=== PATIENT | male | born 1950 | race Caucasian/White ===

== ENCOUNTER 2024-06-09 15:09 | Inpatient (IN) | payer OTHER, SELFPAY ==
--- NOTE | ~2024-06-09 | CT_ITS ---
EXAMINATION: CT ABDOMEN AND PELVIS WITHOUT CONTRAST CLINICAL INFORMATION: Vomiting, weight loss, acute kidney injury COMPARISON: CT from 07/24/2015 TECHNIQUE: Multidetector volumetric imaging was performed from the superior aspect of the liver through the pubic symphysis. Sagittal and coronal reformatted images were obtained on the technologist's workstation. This CT examination was performed using dose optimization techniques as appropriate, variously including the following: *Automated exposure control *Adjustment of mA and/or kV according to patient size (this includes techniques or standardized protocols for targeted exams where dose is matched to indication/reason for exam; i.e. extremities or head) *Use of iterative reconstruction technique DLP: 291 mGy-cm FINDINGS: LUNG BASES: Subsegmental atelectasis in the right lower lobe. Centrilobular emphysema seen LIVER, GALLBLADDER, AND BILIARY TREE: The liver is normal in size, shape, and attenuation. No focal hepatic lesion or biliary ductal dilatation is present. The gallbladder is decompressed. PANCREAS: Unremarkable. SPLEEN: Unremarkable. ADRENAL GLANDS: Unremarkable. KIDNEYS AND URETERS: The kidneys are normal in size, shape, and attenuation. No hydronephrosis, hydroureter, or calculi seen. No perinephric stranding. 1.5 cm simple fluid density cyst in the left kidney. No follow-up indicated. BLADDER: Decompressed GASTROINTESTINAL TRACT: Markedly dilated stomach and small bowel throughout the abdomen with a decompressed colon. There is a loop of bowel extending into the right hernia which is the site of obstruction. No significant bowel wall thickening or free air seen. ABDOMINAL WALL: Right inguinal hernia containing loop of bowel LYMPH NODES: Normal. VASCULAR: Diffuse atherosclerotic wall calcifications throughout the abdominal aorta and iliac arteries. PELVIC VISCERA: Unremarkable. OSSEOUS STRUCTURES: Degenerative disc disease at L5/S1 CT/CT abdomen pelvis wo IV con IMPRESSION: High-grade small bowel obstruction secondary to a right inguinal hernia containing a loop of small bowel. No evidence of bowel ischemia or perforation. This critical result was discussed with Phoebe Mason MD at 1806 on 06/09/2024 and it was ascertained that the content and urgency of the report was understood at the time of direct communication.
--- NOTE | ~2024-06-09 | XR_ITS ---
EXAMINATION: XR CHEST CLINICAL INFORMATION: Weakness, cough COMPARISON: None available. TECHNIQUE: Frontal view of the chest was obtained. FINDINGS: No significant abnormality is noted involving the heart, lungs, mediastinum, bony thorax or soft tissues. XR/XR chest 1V IMPRESSION: Unremarkable examination.
--- NOTE | ~2024-06-09 | XR_ITS ---
EXAMINATION: XR CHEST CLINICAL INFORMATION: Check NG tube placement. COMPARISON: Chest radiograph dated 06/09/2024 at 5:10 PM. TECHNIQUE: Frontal view of the chest was obtained. FINDINGS: There is a catheter overlying the lateral right chest. The proximal and distal portions of this catheter are collimated from the [id number]. There is no evidence of a catheter traversing the esophagus. The heart and lungs are unchanged in appearance compared with examination performed at 5:10 PM on same day. There is no consolidation. The lungs are clear. No pleural effusion or pneumothorax. XR/XR chest 1V IMPRESSION: There is a catheter overlying the lateral right chest. The proximal and distal portions of this catheter are collimated from the [id number]. There is no evidence of a catheter traversing the esophagus. The heart and lungs are unchanged in appearance compared with examination performed at 5:10 PM on same day.
--- NOTE | ~2024-06-09 | XR_ITS ---
EXAMINATION: XR CHEST CLINICAL INFORMATION: Hypoxia. Question aspiration. COMPARISON: Chest radiograph dated 06/09/2024. TECHNIQUE: Frontal view of the chest was obtained. FINDINGS: Enterogastric tube with the tip in the region of the gastric fundus and the side port at the level of the left hemidiaphragm. Right basilar airspace opacities, new when compared to the prior examination and concerning for pneumonia. No left-sided airspace consolidation. No pleural effusion or pneumothorax. Stable cardiomediastinal silhouette. XR/XR chest 1V IMPRESSION: 1. Right basilar airspace opacities, new when compared to the prior examination and concerning for pneumonia. 2. Enterogastric tube with the tip in the region of the gastric fundus and the side port at the level of the left hemidiaphragm.
[2024-06-09 15:15] VITALS: BP 90/60; PULSE 102; O2SAT 97; BMI 17.3
[2024-06-09 15:22] VITALS: BP 101/66; PULSE 91; RESP 18; TEMP 37.1; O2SAT 97
[2024-06-09 16:10] LABS: MANUAL DIFF FLAG NO
[2024-06-09 16:16] LABS: Basophils Percent Auto 0.3 % (0-2); Hemoglobin 15.8 g/dl (14.0-18.0); Imm Gran Abs Auto 0.01 X10*3/uL (0.00-0.03); Imm Gran Pct Auto 0.2 % (0.0-0.4); Lymphocytes Absolute Auto 0.8 X10*3/uL (1.2-4.9); Lymphocytes Percent Auto 12.8 % (20-40); Mean Corpuscular HGB Conc 35.1 g/dl (31.0-36.0); Mean Corpuscular Hemoglobin 31.6 pg (27.0-33.0); Mean Platelet Volume 9.8 fL (9.4-12.4); Monocytes Absolute Auto 0.9 X10*3/uL (0.1-1.2); Monocytes Percent Auto 15.2 % (2-11); Neutrophils Absolute Auto 4.2 x10*3/uL (2.0-8.3); Neutrophils Percent Auto 71.5 % (45-73); Platelet Count 191 X10*3/uL (160-400); Red Cell Distribution Width 13.2 % (11.0-16.0); White Blood Count 5.9 X10*3/uL (4.8-10.8)
[2024-06-09 16:35] LABS: Anion Gap 21 (12-20); Blood Urea Nitrogen 69 mg/dL (9-16); Carbon Dioxide 27 mmol/L (22-29); Chloride 93 mmol/L (96-108); Creatinine Clr Calc Pharmacy 23.9; Estimated Glomerular Filt Rate 33; Sodium 137 mmol/L (135-145)
[2024-06-09 16:36] LABS: Alanine Aminotransferase 20 U/L (0-40); Aspartate Amino Transferase 15 U/L (5-37); Bilirubin Total 0.7 mg/dL (0.0-1.0); Calcium 10.2 mg/dL (8.4-10.2); Glucose Random 162 mg/dL (60-115); Total Protein 7.2 g/dL (6.5-8.0)
[2024-06-09 16:37] LABS: Albumin Level 4.5 g/dL (3.5-5.0); Alkaline Phosphatase 35 U/L (39-117); Lipase 44 U/L (8-78)
--- OUTSIDE RECORDS SUMMARY | 2024-06-09 16:40 | XMS_ITS | Continuity of Care Document ---
Author Organization [facility] Hernesto maxine Address [address] [place] [address] [address] [place] [address]- Care Team Providers Care Barrel Rifler Operator Name Role Phone Casa JORDAN, Melvin Pappas Primary Care Physici an Encounter [facility] Date(s): 03/19/22 - 04/18/22 [facility] [address] [place], [place] [address] Attending Physician: Rick Garner Admitting Physician: Rick Garner Referring Physician: Rick Garner
--- OUTSIDE RECORDS SUMMARY | 2024-06-09 16:40 | XMS_ITS | Continuity of Care Document ---
Author Organization [facility] Hernesto maxine Address [address] [place] [address] [address] [place] [address]- Care Team Providers Care Trade Union Official Name Role Phone Casa JORDAN, Melvin Pappas Primary Care Physici an Encounter [facility] [place] Date(s): 01/19/22 - 04/18/22 [facility] [address] [place], [place] [address] Attending Physician: Olena Sanders MD Referring Physician: Melvin Cormier NP
--- OUTSIDE RECORDS SUMMARY | 2024-06-09 16:41 | XMS_ITS | Continuity of Care Document ---
Author Organization [facility] Hernesto maxine Address [address] [place] [address] [address] [place] [address]- Care Team Providers Care Church Business Administrator Name Role Phone Casa JORDAN, Melvin Pappas Primary Care Physici an Encounter [facility] [place] Date(s): 04/15/23 - 05/15/23 [facility] [address] [place] [address]- Allergies, Adverse Reactions, Alerts No Known Allergies Medications atorvastatin 10 mg oral tablet 1 tablet = 10 mg, By Mouth, Daily, 0 Refills, Maintenance, 02/08/23 9:31:00 EDT, Partial fill upon patient request if the prescription is for a schedule II opioid drug. Start Date: 02/08/23 Status: Ordered Lisinopril By Mouth, Daily, 0 Refills, Maintenance, 02/08/23 9:29:00 EDT, Partial fill upon patient request ifthe prescription is for a schedule II opioid drug. Start Date: 02/08/23 Status: Ordered Social History Social History Type Response Smoking Status 5-9 cigarettes (betw een 1/4 to 1/2 pack)/day in last 30 days entered on: 02/08/23 Sex Patient Care team information Care Team Personnel Name: Melvin Cormier NP Position: Reference Physician Member Role: PCP Address: Address: [address] [place] [address]- [place] Care Team Related Persons Name: DIPAK SANDHU Address: home [address] [place] [address]
--- OUTSIDE RECORDS SUMMARY | 2024-06-09 16:41 | XMS_ITS | Continuity of Care Document ---
Author Organization [facility] Address [address] [place] [address] [address] [place] [address]- Care Team Providers Care Factory Clerk Name Role Phone Joey Cormier NP Primary Care Physici an Encounter [facility] [place] Date(s): 09/17/22 - 09/24/22 [facility] [address] [place] [address]- Attending Physician: Olena Sanders MD Allergies, Adverse Reactions, Alerts No Known Allergies Vital Signs Most recent to oldest [Reference Range]: 1 Height 165 cm (09/17/22 10:33 AM) Weight 59 kg (09/17/22 10:33 AM) Body Mass Index [18.5-24.99 kg/m2] 21.67 kg/m2 (09/17/22 10:33 AM) Dry Weight 59 kg (09/17/22 10:33 AM) Dry Weight Obtained Via Standing scale (09/17/22 10:33 AM) Patient Care team information Personnel Name: Joey Cormier NP Address: Address: [address] [place] [address]
--- OUTSIDE RECORDS SUMMARY | 2024-06-09 16:41 | XMS_ITS | Continuity of Care Document ---
Author Organization [facility] Hernesto maxine Address [address] [place] [address] [address] [place] [address]- Care Team Providers Care Lab Technologist Name Role Phone Melvin Cormier NP Primary Care Physici an Encounter [facility] Date(s): 09/17/22 - 10/17/22 [facility] [address] [place] [address]- Attending Physician: Admtr, Ar8 Admitting Physician: Admtr, Ar8 Referring Physician: Admtr, Ar8 Allergies, Adverse Reactions, Alerts No Known Allergies Patient Care team information Care Team Personnel Name: Melvin Cormier NP Position: Reference Physician Member Role: PCP Address: Address: [address] [place] [address]- Care Team Related Persons Name: DIPAK SANDHU Address: home [address] [place] [address]
--- OUTSIDE RECORDS SUMMARY | 2024-06-09 16:41 | XMS_ITS | Continuity of Care Document ---
Author Organization [facility] Hernesto maxine Address [address] [place] [address] [address] [place] [address]- Care Team Providers Care Geriatric Nurse Practitioner Name Role Phone Melvin Cormier NP Primary Care Physici an [place] [facility] [id number] Date(s): 02/08/23 - 02/15/23 [facility] [address] [place] [address]- Attending Physician: Rc Bolton MD Allergies, Adverse Reactions, Alerts No Known [...] opioid drug. Start Date: 02/08/23 Status: Ordered Vital Signs Most recent to oldest [Reference Range]: 1 Height 165 cm (02/08/23 9:26 AM) Weight 59 kg (02/08/23 9:26 AM) Body Mass Index [18.5-24.99 kg/m2] 21.67 kg/m2 (02/08/23 9:26 AM) Social History Social History Type Response Smoking Status 5-9 cigarettes (betw een 1/4 to 1/2 pack)/day in last 30 days entered on: 02/08/23 Sex Patient Care team information Care Team Personnel Name: Melvin Cormier NP Position: Reference Physician Member Role: PCP Address: Address: [address] [place] [address]- Care Team Related Persons Name: DIPAK SANDHU Address: home [address] [place] [address]
--- OUTSIDE RECORDS SUMMARY | 2024-06-09 16:41 | XMS_ITS | Continuity of Care Document ---
Author Organization [facility] Hernesto maxine Address [address] [place] [address] [address] [place] [address]- Care Team Providers Care Blog Writer Name Role Phone Casa JORDAN, Melvin Pappas Primary Care Physici an Encounter [facility] [place] Date(s): 03/25/23 - 04/01/23 [facility] [address] [place], [place] [address] Attending Physician: Olena Sanders MD Allergies, Adverse [...] oldest [Reference Range]: 1 Height 165 cm (03/25/23 11:16 AM) Weight 59 kg (03/25/23 11:16 AM) Body Mass Index [18.5-24.99 kg/m2] 21.67 kg/m2 (03/25/23 11:16 AM) Dry Weight 59 kg (03/25/23 11:16 AM) Dry Weight Obtained Via Standing scale (03/25/23 11:16 AM) Social History Social History Type Response Smoking Status 5-9 cigarettes (betw een 1/4 to 1/2 pack)/day in last 30 days entered on: 02/08/23 Sex Patient Care team information Care Team Personnel Name: Melvin Cormier NP Position: Reference Physician Member Role: PCP Address: Address: [address] [place] [address]- Care Team Related Persons Name: DIPAK SANDHU Address: home [address] [place] [address]
--- OUTSIDE RECORDS SUMMARY | 2024-06-09 16:41 | XMS_ITS | Continuity of Care Document ---
Author Organization [facility] Hernesto maxine Address [address] [place] [address] [address] [place] [address]- Care Team Providers Care Inventory Control/Shipping Receiving Name Role Phone Casa JORDAN, Melvin Pappas Primary Care Physici an [place] [facility] [place] 12/11/22 - 01/10/23 [facility] [address] [place] [address]- Allergies, Adverse Reactions, Alerts No Known Allergies Patient Care team information Care Team Personnel Name: Melvin Cormier NP Position: Reference Physician Member Role: PCP Address: Address: [address] [place] [address]- Care Team Related Persons Name: DIPAK SANDHU Address: home [address] [place] [address]
--- OUTSIDE RECORDS SUMMARY | 2024-06-09 16:41 | XMS_ITS | Continuity of Care Document ---
Author Organization [facility] Hernesto maxine Address [address] [place] [address] [address] [place] [address]- Care Team Providers Care Park Maintainer Name Role Phone Casa JORDAN, Melvin Pappas Primary Care Physici an Encounter [facility] [place] Date(s): 11/25/21 - 02/21/22 [facility] [address] [place], [place] [address] Attending Physician: Tommy ANDREA, Olena Owens Referring Physician: Melvin Cormier NP
--- OUTSIDE RECORDS SUMMARY | 2024-06-09 16:41 | XMS_ITS | Continuity of Care Document ---
Author Organization [facility] Hernesto maxine Address [address] [place] [address] [address] [place] [address]- Care Team Providers Care Rack Washer Name Role Phone Melvin Cormier NP Primary Care Physici an Encounter [facility] [place] Date(s): 08/12/23 - 08/19/23 [facility] [address] [place] [address]- Attending Physician: Olena Sanders MD Allergies, Adverse [...] oldest [Reference Range]: 1 Height 165 cm (08/12/23 9:59 AM) Weight 59 kg (08/12/23 9:59 AM) Body Mass Index [18.5-24.99 kg/m2] 21.67 kg/m2 (08/12/23 9:59 AM) Social History Social History Type Response Smoking Status 5-9 cigarettes (betw een 1/4 to 1/2 pack)/day in last 30 days entered on: 02/08/23 Sex Patient Care team information Care Team Personnel Name: Melvin Cormier NP Position: Reference Physician Member Role: PCP Address: Address: [address] [place] [address]- [place] Care Team Related Persons Name: DIPAK SANDHU Address: home [address] [place] [address]
--- OUTSIDE RECORDS SUMMARY | 2024-06-09 16:41 | XMS_ITS | Continuity of Care Document ---
Author Organization [facility] Hernesto maxine Address [address] [place] [address] [address] [place] [address]- Care Team Providers Care Liquor Stores And Agencies Supervisor Name Role Phone Melvin Cormier NP Primary Care Physici an Encounter [facility] [place] Date(s): 05/19/23 - 06/18/23 [facility] [address] [place] [address]- Allergies, Adverse Reactions, Alerts No Known Allergies [...] Reference Physician Member Role: PCP Address: Address: [address] [place] [address]- [place] Care Team Related Persons Name: DIPAK SANDHU Address: home [address] [place] [address]
--- OUTSIDE RECORDS SUMMARY | 2024-06-09 16:41 | XMS_ITS | Continuity of Care Document ---
Author Organization [facility] Hernesto maixne Address [address] [place] [address] Dr [address] [place] [address]- Care Team Providers Care Gravity Prospector Name Role Phone Casa JORDAN, Melvin Pappas Primary Care Physici an [place] [facility] [place] 08/13/22 - 08/20/22 [facility] [address] [place], [place] [address] Attending Physician: Olena Sanders MD Referring Physician: Melvin Cormier NP Allergies, Adverse Reactions, Alerts No Known Allergies Vital Signs Most recent to oldest [Reference Range]: 1 Height 165 cm (08/13/22 9:43 AM) Weight 59.5 kg (08/13/22 9:43 AM) Body Mass Index [18.5-24.99 kg/m2] 21.85 kg/m2 (08/13/22 9:43 AM) Dry Weight 59.5 kg (08/13/22 9:43 AM) Dry Weight Obtained Via Standing scale (08/13/22 9:43 AM) Patient Care team information Personnel Name: Melvin Cormier NP Address: Address: [address] [place] [address] [place] [address]
--- OUTSIDE RECORDS SUMMARY | 2024-06-09 16:41 | XMS_ITS | Continuity of Care Document ---
Author Organization [facility] Hernesto maxine Address [address] [place] [address] [address] [place] [address]- Care Team Providers Care Production Utility Worker Name Role Phone Casa JORDAN, Melvin Pappas Primary Care Physici an En[place] [facility] [place] Date(s): 12/11/22 - 02/19/23 [facility] [address] [place] [address]- Attending Physician: Rc Bolton MD Allergies, Adverse [...] Reference Physician Member Role: PCP Address: Address: [address] [place] [address] [place] Care Team Related Persons Name: DIPAK SANDHU Address: home [address] [place] [address]
--- OUTSIDE RECORDS SUMMARY | 2024-06-09 16:41 | XMS_ITS | Continuity of Care Document ---
Author Organization [facility] Hernesto maxine Address [address] [place] [address] [address] [place] [address]- Care Team Providers Care Legal Entity Controller Name Role Phone Casa JORDAN, Melvin Pappas Primary Care Physici an [place] [facility] [place] 03/25/23 - 05/15/23 [facility] [address] [place] [address]- Attending Physician: Tommy ANDREA, Olena Owens Allergies, Adverse Reactions, Alerts No Known Allergies [...] Reference Physician Member Role: PCP Address: Address: [address] [place] [address]- Care Team Related Persons Name: DIPAK SANDHU Address: home [address] [place] [address]
--- OUTSIDE RECORDS SUMMARY | 2024-06-09 16:41 | XMS_ITS | Continuity of Care Document ---
Author Organization [facility] Hernesto maxine Address [address] [place] [address] [address] [place] [address]- Care Team Providers Care Plumbers And Top Helpers Name Role Phone Casa JORDAN, Melvin Pappas Primary Care Physici an En[place] [facility] [place] Date(s): 08/12/23 - 09/11/23 [facility] [address] [place] [address]- Attending Physician: Rick Garner Admitting Physician: AdmtrRick Referring Physician: Admtr, Ar8 Allergies, Adverse Reactions, [...] Reference Physician Member Role: PCP Address: Address: [address] [place] [address]- Care Team Related Persons Name: DIPAK SANDHU Address: home [address] [place] [address]
--- OUTSIDE RECORDS SUMMARY | 2024-06-09 16:41 | XMS_ITS | Continuity of Care Document ---
Author Organization [facility] Hernesto maxine Address [address] [place] [address] [address] [place] [address]- Care Team Providers Care Electric Golf Cart Repairer Name Role Phone Casa JORDAN, Melvin Pappas Primary Care Physici an Encounter [facility] Date(s): 06/02/22 - 07/02/22 [facility] [address] [place], [place] [address]
--- OUTSIDE RECORDS SUMMARY | 2024-06-09 16:41 | XMS_ITS | Continuity of Care Document ---
Author Organization [facility] Hernesto maxine Address [address] [place] [address] [address] [place] [address]- Care Team Providers Care Operating Room Aide Name Role Phone Melvin Cormier NP Primary Care Physici an [place] [facility] 09/03/22 - 09/10/22 [facility] [address] [place] [address]- Attending Physician: Olena Sanders MD Allergies, Adverse Reactions, Alerts No Known Allergies Vital Signs Most recent to oldest [Reference Range]: 1 Height 165 cm (09/03/22 8:50 AM) Weight 59 kg (09/03/22 8:50 AM) Body Mass Index [18.5-24.99 kg/m2] 21.67 kg/m2 (09/03/22 8:50 AM) Dry Weight 59 kg (09/03/22 8:50 AM) Dry Weight Obtained Via Standing scale (09/03/22 8:50 AM) Patient Care team information Personnel Name: Melvin Cormier NP Address: Address: [address] [place] [address]
--- NOTE | 2024-06-09 16:55 | ED.WEAKNESS ---
HPI - Weakness General Chief complaint: Weakness Stated complaint: weakness, nausea, vomiting, poss dehydration Time Seen by Provider: 06/09/24 15:55 Source: patient Mode of arrival: EMS Limitations: no limitations History of Present Illness ED Provider: DANIEL HPI Narrative: 74 yo male with PMH of high cholesterol and HTN who cannot tell me what meds he takes but he takes them every day lives alone with his cat was brought to us for n/v weakness and poor PO intake dehydrated for 1 week. He denies weight loss that he knows about but his belt is past loops and he notes he doesn't feel great. He has never had a colonoscopy. He states he peed before he came. He cannot give urine sample here. He has never had anything like this before. He isn't very forthcoming with information. States he passed gas and small BM today. Complaint: generalized weakness Onset (ago): week(s) (1) Duration: constant Location: generalized Migration: none Severity: moderate Exacerbating factors: movement, exertion and other (eating) Associated symptoms: loss of appetite, nausea/vomiting and myalgias Related Data Allergies Allergy/AdvReac Type Severity Reaction Status Date / Time aspirin [ASPIRIN] AdvReac Intermediate UPSET Verified 06/09/24 15:17 STOMACH Review of Systems Review of Systems: Constitutional : No Fever, No Chills, pos Fatigue ENT/Mouth : No sore throat, No Rhinorrhea Eyes: No Eye Pain, No Swelling, No Redness Cardiovascular : No Chest Pain, No SOB, No Dyspnea on Exertion Respiratory : No Cough, No Sputum Gastrointestinal : pos Nausea, pos Vomiting, No Diarrhea, No abdominal Pain Genitourinary : No Dysuria, No Urinary Frequency, No Hematuria, Musculoskeletal : No joint pain, No Myalgias, No Joint Swelling Skin : No Skin Lesions, No rash Neuro : pos Weakness, No Numbness, No Dizziness, positive Headache Psych : No Anxiety/Panic, No Depression All other systems reviewed and are negative [facility] Past Medical History Attestation statement: The following information was validated with the patient. Source: old records reviewed Medical History High cholesterol HTN (hypertension) Social History Social History (Updated 06/09/24 @ 17:05 by Phoebe Mason DO) Alcohol intake: current Alcohol intake frequency: holidays/special occasions only Patient Tobacco Use Status: Current everyday Tobacco user Smoked in Last 30 Days: Yes Use of substances other than those prescribed or required for medical reasons: No Advance Directives: No Advance Directives Information Provided: Yes Do you have a plan to hurt others: No Plan Physical Exam Vital Signs: Vital Signs: Last Vital Signs Temp 98.7 F 06/09/24 15:22 Pulse 91 06/09/24 15:22 Resp 18 06/09/24 15:22 BP 101/66 06/09/24 15:22 Pulse Ox 97 06/09/24 15:22 O2 Del Method Room Air 06/09/24 15:22 BMI result Body Mass Index 17.3 Appearance: Alert. Oriented X3. No acute distress. Frail temporal wasting Eyes: Pupils equal, round and reactive to light. ENT: Pharynx very dry MM Neck: Normal inspection. Neck supple. CVS: Normal heart rate and rhythm. Pulses normal. Respiratory: No respiratory distress. Breath sounds normal. Abdomen: Soft but appears slightly distended lower abdomen. He denies ttp but he is very stoic belt is on extra loops pants hanging off : bladder scan 33mL R inguinal hernia cannot reduce states he has no pain and there's no discoloration noted. Skin: Skin warm and dry. Normal skin color. Normal skin turgor. Extremities: No lower extremity edema. Neuro: Oriented X 3. No motor deficit. No sensory deficit. Medications Administered Discontinued Medications Generic Name Dose Route Start Last Admin Trade Name Freq PRN Reason Stop Dose Admin Sodium Chloride 1,000 mls @ 999 mls/hr 06/09/24 16:50 06/09/24 17:11 Ns IV 06/09/24 17:50 999 mls/hr .Q1H1M ONE Administration Sodium Chloride 1,000 mls @ 999 mls/hr 06/09/24 16:59 06/09/24 17:11 Ns IV 06/09/24 17:59 999 mls/hr .Q1H1M ONE Administration Medical Decision Making Medical Decision Making [facility] Narrative: 74 yo male with PMH of high cholesterol and HTN here with c/o FTT n/v x 1 week and not feeling well he is not giving me any localizing areas of pain and no diarrhea. He is very flat in his affect. He denies abdominal pain and he appears very frail and thin. At this time labs, UA, CT scan of abdomen/pelvis of mass, obstrucion given hernia, CXR for mass, IVF x 2L given LALO. Likely admit pending workup Differential Diagnosis Differential Diagnoses: The differential diagnosis associated with the presentation includes LALO, mass, dehydration, obstruction, hernia Admission/Observation Consideration of admission/observation: Escalation of care including admission/observation considered admit for LALO Consult Healthcare Provider Management of the patient was discussed with: Power Generation Engineer (Dr. Dickson will review CT scans 620pm) surgery to admit Lab Data MDM Lab Attestation statement: I reviewed the patient's lab results. 06/09/24 16:03 06/09/24 16:03 Labs: Lab Results 06/09/24 06/09/24 Range/Units 16:03 17:07 WBC 5.9 (4.8-10.8) X10*3/uL RBC 5.00 (4.60-5.80) X10*6/uL Hgb 15.8 (14.0-18.0) g/dl Hct 45.0 (42.0-52.0) % MCV 90.0 (80.0-98.0) fL MCH 31.6 (27.0-33.0) pg MCHC 35.1 (31.0-36.0) g/dl RDW 13.2 (11.0-16.0) % Plt Count 191 (160-400) X10*3/uL MPV 9.8 (9.4-12.4) fL Immature Gran % (Auto) 0.2 (0.0-0.4) % Neut % (Auto) 71.5 (45-73) % Lymph % (Auto) 12.8 L (20-40) % Luce % (Auto) 15.2 H (2-11) % Eos % (Auto) 0.0 (0-4) % Baso % (Auto) 0.3 (0-2) % Lymph # (Auto) 0.8 L (1.2-4.9) X10*3/uL Luce # (Auto) 0.9 (0.1-1.2) X10*3/uL Eos # (Auto) 0.0 (0.0-0.4) X10*3/uL Baso # (Auto) 0.0 (0.0-0.2) X10*3/uL Abs Immat Gran (auto) 0.01 (0.00-0.03) X10*3/uL Absolute Neuts (auto) 4.2 (2.0-8.3) x10*3/uL Absolute Nucleated RBC 0.000 (0.0-0.012) X10*3/uL Nucleated RBC % (auto) 0.0 (0.0-0.2) /100WBC Sodium 137 (135-145) mmol/L Potassium 4.0 (3.3-5.1) mmol/L Chloride 93 L (96-108) mmol/L Carbon Dioxide 27 (22-29) mmol/L Anion Gap 21 H (12-20) BUN 69 H (9-16) mg/dL Creatinine 1.97 H (0.5-1.4) mg/dL Estim Creat Clear Calc 23.9 Estimated GFR 33 Random Glucose 162 H (60-115) mg/dL Calcium 10.2 (8.4-10.2) mg/dL Magnesium 2.2 (1.6-2.6) mg/dL Total Bilirubin 0.7 (0.0-1.0) mg/dL AST 15 (5-37) U/L ALT 20 (0-40) U/L Alkaline Phosphatase 35 L (39-117) U/L Total Creatine Kinase 98 (38-174) U/L Troponin I High Sens 13.0 (<3.5-35.0) ng/L Total Protein 7.2 (6.5-8.0) g/dL Albumin 4.5 (3.5-5.0) g/dL Lipase 44 (8-78) U/L Ethyl Alcohol < 10 mg/dL Independent Interpretation I performed an independent interpretation of an: EKG, Plain X-Ray (no mass) and CT Scan Interpretation: Rate: 76 Rhythm: NSR [place]: normal Normal P waves. Normal ARELY. Normal QRS complex. ST T wave : normal no POP qTC: 420 prior studies: no acute ischemia The study has been interpreted contemporaneously by me. . Radiology Impression Discussion of test interpretation with radiology: I discussed test interpretation with the radiologist and I have reviewed the radiologist's reading. Radiologist Impression: 606pm CT scan high grade SBO R inguinal hernia loop of bowel Critical Care Time Critical Care Time Critical Care Time: Yes Total Critical Care Time: 45 Attestation: consult, admit, 2L of IVF, review of records I attest to this time spent taking care of the patient Discharge Plan Discharge Clinical Impression: LALO (acute kidney injury), SBO (small bowel obstruction), Incarcerated inguinal hernia Patient Disposition: Admitted As Inpatient Print Language: [place]an
--- NOTE | 2024-06-09 16:59 | ECG_ITS ---
Test Reason : WEAKNESS Blood Pressure : / mmHG Vent. Rate : 076 BPM Atrial Rate : 076 BPM P-R Int : 122 ms QRS Dur : 072 ms QT Int : 374 ms P-R-T Axes : 006 022 064 degrees QTc Int : 420 ms Normal sinus rhythm Normal ECG No previous ECGs available Referred By: Phoebe Mason Electronically Signed By:EMILY WARREN MD
[2024-06-09 17:05] LABS: Magnesium 2.2 mg/dL (1.6-2.6)
[2024-06-09] MEDS: 0.9 % Sodium Chloride 1,000 ML 999 ML IV ×2 (17:11)
--- NOTE | 2024-06-09 17:11 | PC.NURSE ---
pt verbalizes being unable to urinate at this time. bladder scan performed displaying 33ml. 20gIV placed in the right AC - labs obtained/sent to lab. IVF infusing/per provider order at this time. pt waiting for CT to be completed at this time. resting in no apparent distress. no sob/wob noted. respirations even/unlabored. plan of care ongoing. call franklin placed within reach.
[2024-06-09 17:42] LABS: Ethanol < 10 mg/dL
[2024-06-09 19:04] LABS: Influenza A PCR NEGATIVE (Negative); Influenza B PCR NEGATIVE (Negative); Resp Syncy Virus RNA Qual PCR NEGATIVE (Negative); SARS COV2 PCR INHOUSE NEGATIVE (Negative)
[2024-06-09 19:22] LABS: Appearance Urine Clear; Color Urine Dark Yellow; Glucose Urine UA Negative (Negative); Leukocyte Esterase Urine Negative (Negative); Nitrite Urine Negative (Negative); UMIC TRIGGER UACC YES; Urine Blood Negative (Negative); Urine Ketones Negative (Negative); Urine Protein 100 (2+) mg/dL (Neg-Trace)
[2024-06-09 19:54] LABS: Bacteria Urine None Seen (None Seen); Hyaline Casts Urine >20 /LPF (0-2); RBC Urine 0-2 /HPF (0-2); Squamous Epithelial Cell Urine 0-2 /HPF (0-2); WBC Urine 0-5 /HPF (0-5)
--- NOTE | 2024-06-09 20:05 | PC.NURSE ---
Multiple attempts by 3 nurses made to insert NG tube, unable to advance NG tube d/t coiling and trauma to nares. Dr. Dickson notified via [employer] message.
[2024-06-09] MEDS: Lidocaine HCl 4 % MPF w/MADgic 5 ML AMPUL 1 APPL TOPICAL (20:39)
[2024-06-09] MEDS: Enoxaparin Sodium 30 MG/0.3 ML SYRINGE SUBCUT (20:39)
[2024-06-09] MEDS: Dextrose 5 % and Lactated Ring 1,000 ML 125 ML IVCONT (20:39)
[2024-06-09 20:52] VITALS: BP 119/75; PULSE 87; RESP 18; TEMP 36.7; O2SAT 97
--- NOTE | 2024-06-09 20:53 | PC.NURSE ---
Dr. Mason at bedside, attempted to insert NG tube with no success. Dr. Dickson informed, no new orders at this time.
--- NOTE | 2024-06-09 21:15 | PHA.MEDREC ---
Pharmacy Consult ? Medication Reconciliation Pharmacy has completed the medication reconciliation. Utilized list from [facility] [phone] to confirm med list.
[2024-06-09 22:06] VITALS: BP 107/69; PULSE 75; RESP 18; TEMP 36.6; O2SAT 96
[2024-06-09 22:11] VITALS: BMI 18.1
--- NOTE | 2024-06-09 22:37 | PC.NURSE ---
2200- patient admitted to [place] [id number] via stretcher from ED setting, A/O times 3, color good, no pain, nausea, or diarrhea. pt is a NPO diet with okay for ice chips. ED MD and staff unable to place NGT in ED, surgeon made aware by ED RN, noted on admission report and clarified with staff okay to not attempt reinsertion. (see reports for details). #20 angio at right forearm, ivf as ordered, Educated to call franklin use and safety, HFR protocol initiated at this time. Admission completed by devulcanizer charger Nurse, see her documentation. Will continue to monitor.
--- NOTE | 2024-06-09 23:43 | P.HPGS_ITS ---
History of Present Illness History of Present Illness Date of Service: 06/09/24 Chief complaint: Small bowel obstruction, Right inguinal hernia Narrative: Melvin Diallo is a 74 year old male presenting with complaints of nausea, vomiting, weakness, and poor oral intake for approximately 1 week. He reports living alone with his cat and has not seen a physician in many years. He presented to the emergency department for further evaluation and was noted to have abdominal distention. CT abdomen and pelvis revealed dilated loops of small bowel with a right inguinal hernia as the site of obstruction. Attempts to reduce the hernia the emergency department were unsuccessful. He is admitted to the surgical service for further hydration and management of this incarcerated right inguinal hernia. He denies any pain in the right groin. Admitting laboratories reveal a normal WBC. Review of Systems 2 Review of Systems: Yes all other systems are reviewed and are negative Constitutional: Constitutional: Denies chills, Denies fever(s), Denies headache(s), Reports poor appetite and Reports weakness ENT: Denies headache(s) Cardiovascular: Cardiovascular: Denies chest pain, Denies irregular heart rhythm, Denies palpitations and Denies dyspnea Respiratory: Respiratory: Denies cough, Denies excessive phlegm production and Denies dyspnea Gastrointestinal: Gastrointestinal: Denies abdominal pain, Denies bloating, Denies change in bowel habits, Denies constipation, Denies heartburn, Denies diarrhea, Denies nausea and Denies vomiting Genitourinary: Genitourinary: Denies difficulty urinating and Denies urinary frequency Musculoskeletal: Musculoskeletal: Denies back pain, Denies muscle weakness and Denies numbness Integumentary/Breasts: Skin/Breast: Denies changing lesions and Denies unusual bruising Neurologic: Denies headache(s), Denies numbness, Denies paresthesias and Reports weakness Psychiatric: Psychiatric: Denies anxiety and Denies depression Endocrine: Endocrine: Denies palpitations Hematologic/Lymphatic: Hematologic/Lymphatic: Denies lymphadenopathy PMFSH Past Medical History Medical History High cholesterol HTN (hypertension) Social History Social History (Updated 06/09/24 @ 17:05 by Phoebe Mason DO) Household Members: None Housing: Apartment Do you presently have visiting nurse or other home services: No Alcohol intake: current Alcohol intake frequency: holidays/special occasions only Patient Tobacco Use Status: Current everyday Tobacco user Tobacco use type: Cigarette Cigarettes Per Day: 3 Years Smoked: 30 Smoked in Last 30 Days: Yes Patient Interested in Nicotine Replacement: No Patient Given Instructions on How to Stop Smoking: No (pt refused) Second Hand Smoke Exposure: No Use of substances other than those prescribed or required for medical reasons: Yes Substance Use Type: Marijuana Substance Use Frequency: Weekly Last Used Substance: Days (ago) Currently Displaying Signs/Symptoms of Drug Intoxication Withdrawal: No Any prior treatment program specific to substance use: No Have you been hit, kicked, punched, or otherwise hurt by someone within the past year? If so, by whom?: No Do you feel safe in your current relationship?: No Current Relationship Is there a partner from a previous relationship who is making you feel unsafe now?: No Are you made to feel afraid or neglected: No Advance Directives: No Advance Directives Information Provided: Yes Do you have a plan to hurt others: No Plan Recently lost weight without trying: No Eating poorly because of decreased appetite: Yes Nutrition Risks: Poor intake 0-25% >4 days Poor oral hygiene: No Meds Allergies Allergy/AdvReac Type Severity Reaction Status Date / Time aspirin [ASPIRIN] AdvReac Intermediate UPSET Verified 06/09/24 15:17 STOMACH Active Medications: Current Medications Acetaminophen (Acetaminophen 325 Mg Tablet) 650 mg PO Q6H PRN PRN Reason: Pain, Mild (Pain Scale 1-3), fever or headache Enoxaparin Sodium (Enoxaparin Sodium 30 Mg/0.3 Ml Syringe) 30 mg SUBCUT Q24H [facility] Last Admin: 06/09/24 20:39 Dose: 30 mg Dextrose/Lactated Ringer's (D5lr) 1,000 mls @ 125 mls/hr IVCONT .Q8H [facility] Last Admin: 06/09/24 20:39 Dose: 125 mls/hr Magnesium Hydroxide (Milk Of Magnesia 30 Ml Oral.Susp) 30 ml PO DAILY PRN PRN Reason: Constipation Melatonin (Melatonin 3 Mg Tablet) 6 mg PO BEDTIME PRN PRN Reason: Insomnia Morphine Sulfate (Morphine Sulfate 4 Mg/Ml Cartridge) 2 mg IVPUSH Q4H PRN; Protocol PRN Reason: Pain, Severe (Pain Scale 7-10) Sodium Chloride (0.9 % Sodium Chloride Flush 3 Ml Syringe) 3 ml IVFLUSH QSHIFT [facility] Home Medications ?Medication ?Instructions ?Recorded ?Confirmed ?Last Taken ?Type atorvastatin 80 mg tablet 40 mg PO DAILY 06/09/24 06/09/24 Unknown History carisoprodol 350 mg tablet (Soma) 350 mg PO QID 06/09/24 06/09/24 Unknown History lisinopril 20 mg tablet 20 mg PO DAILY 06/09/24 06/09/24 Unknown History Physical Exam 2 Vital Signs: Vital Signs: Last Vital Signs Temp 97.9 F 06/09/24 22:06 Pulse 75 06/09/24 22:06 Resp 18 06/09/24 22:06 BP 107/69 06/09/24 22:06 Pulse Ox 96 06/09/24 22:06 O2 Del Method Room Air 06/09/24 22:06 BMI result Body Mass Index 18.1 Const: General: cooperative and no acute distress Nutritional Appearance: w ell nourished Orientation/consciousness: patient oriented x3 Limitations: no limitations HEENT: Head: Yes normocephalic and Yes atraumatic Ears: hearing grossly normal bilaterally Resp: Effort & Inspection: normal respiratory effort, no audible wheezes, no cough and no respiratory distress Cardio: Jugular venous distension: no JVD GI: Other: Distended Palpation (GI): Soft to palpation, nontender, no guarding and not rigid Percussion: Yes tympanic to percussion Auscultation: Absent bowel sounds R ectal Exam - Male: Yes deferred Abdomen image: 1. Right inguinal hernia Skin: Other: Warm, dry, no rash Neuro: General: patient oriented x3 Extrem: General: Yes no clubbing, cyanosis or edema Results Results Labs: Short CBC 06/09/24 Range/Units 16:03 WBC 5.9 (4.8-10.8) X10*3/uL Hgb 15.8 (14.0-18.0) g/dl Hct 45.0 (42.0-52.0) % Plt Count 191 (160-400) X10*3/uL BMP 06/09/24 16:03 Sodium 137 Potassium 4.0 Chloride 93 L Carbon Dioxide 27 BUN 69 H Creatinine 1.97 H Calcium 10.2 Cardiac Enzymes 06/09/24 Range/Units 16:03 Total Creatine Kinase 98 (38-174) U/L Liver Function 06/09/24 Range/Units 16:03 Total Bilirubin 0.7 (0.0-1.0) mg/dL AST 15 (5-37) U/L ALT 20 (0-40) U/L Alkaline Phosphatase 35 L (39-117) U/L Albumin 4.5 (3.5-5.0) g/dL Urine 06/09/24 Range/Units 19:14 Urine Color Dark Yellow Urine Appearance Clear Urine pH 5.0 (5.0-9.0) Ur Specific [place] 1.020 (1.005-1.025) Urine Protein 100 (2+) H (Neg-Trace) mg/dL Urine Glucose (UA) Negative (Negative) mg/dL Assessment and Plan (1) Incarcerated inguinal hernia: Status: Acute (2) SBO (small bowel obstruction): Status: Acute (3) LALO (acute kidney injury): Status: Acute Plan 74-year-old male patient with an incarcerated right inguinal hernia and small- bowel obstruction. Patient is felt to be dehydrated and we will require rehydration. Attempts at placing an NG tube were unsuccessful with multiple attempts. We will keep patient NPO with IV fluids. Hospitalist consultation requested as patient has not seen a physician for many years. Possible OR within the next several days if medically cleared. Patient understands and agrees with the plan. Quality Stroke Does the patient have a stroke diagnosis?: No VTE Prior VTE?: No VTE Risk Level:: Surgical - moderate VTE Device Contraindication: N/A - Device Ordered VTE Drug Contraindication: N/A - Med Ordered Procedures Date of Service Date of Service: 06/09/24
[2024-06-10 03:26] VITALS: BP 116/71; PULSE 93; RESP 18; TEMP 36.5; O2SAT 93
[2024-06-10] MEDS: Dextrose 5 % and Lactated Ring 1,000 ML 125 ML IVCONT ×3 (04:56→19:41)
[2024-06-10 06:50] LABS: Hematocrit 43.5 % (42.0-52.0); Hemoglobin 15.4 g/dl (14.0-18.0); Mean Corpuscular HGB Conc 35.4 g/dl (31.0-36.0); Mean Corpuscular Volume 90.4 fL (80.0-98.0); Mean Platelet Volume 10.4 fL (9.4-12.4); Platelet Count 166 X10*3/uL (160-400); Red Blood Count 4.81 X10*6/uL (4.60-5.80); Red Cell Distribution Width 13.1 % (11.0-16.0); White Blood Count 4.3 X10*3/uL (4.8-10.8)
[2024-06-10 06:54] VITALS: BP 96/60; PULSE 78; RESP 16; TEMP 36.7
[2024-06-10 07:17] LABS: Band Neutrophils Percent 17 % (3-5); Lymphocytes Absolute Manual 0.4 X10*3/uL (1.2-4.9); Lymphocytes Percent Manual 9 % (20-40); Metamyelocytes Percent 1 %; Monocytes Absolute Manual 0.3 X10*3/uL (0.1-1.2); Monocytes Percent Manual 6 % (2-11); Neutrophils Absolute Manual 3.6 X10*3/uL (2.0-8.3); Neutrophils Percent Manual 67 % (45-73)
[2024-06-10 07:19] LABS: Dohle Bodies PRESENT; Platelet Estimate NORMAL (NORMAL); Platelet Morphology Comment NORMAL; RBC Morphology NORMAL; Toxic Vacuolation PRESENT
[2024-06-10 07:42] LABS: Anion Gap 22 (12-20); Blood Urea Nitrogen 72 mg/dL (9-16); Calcium 9.5 mg/dL (8.4-10.2); Carbon Dioxide 27 mmol/L (22-29); Chloride 93 mmol/L (96-108); Creatinine Clr Calc Pharmacy 26.7; Estimated Glomerular Filt Rate 36; Glucose Random 168 mg/dL (60-115); Potassium 3.7 mmol/L (3.3-5.1); Sodium 138 mmol/L (135-145)
--- NOTE | 2024-06-10 08:50 | P.PNGS_ITS ---
Subjective Subjective Date of Service: 06/10/24 Interval history: Patient denies abdominal pain, nausea, vomiting, or groin pain at this time. Physical Exam 2 Vital Signs: Vital Signs: Last Vital Signs Temp 98.1 F 06/10/24 06:54 Pulse 78 06/10/24 06:54 Resp 16 06/10/24 06:54 BP 96/60 06/10/24 06:54 Pulse Ox 93 06/10/24 03:26 O2 Del Method Room Air 06/10/24 03:26 BMI result Body Mass Index 18.1 Const: General: comfortable Nutritional Appearance: thin O rientation/consciousness: patient oriented x3 Resp: Effort & Inspection: normal respiratory effort, no audible wheezes, no cough and no respiratory distress GI: Other: Palpable right groin lump, possible femoral hernia. Not reducible. Inspection: Yes normal to inspection Palpation (GI): Soft to palpation, nontender, no guarding and not rigid Percussion: Yes tympanic to percussion Auscultation: abnormal bowel sounds Neuro: General: patient oriented x3 Objective Data Active Medications Acetaminophen (Acetaminophen 325 Mg Tablet) 650 mg PO Q6H PRN PRN Reason: Pain, Mild (Pain Scale 1-3), fever or headache Enoxaparin Sodium (Enoxaparin Sodium 30 Mg/0.3 Ml Syringe) 30 mg SUBCUT Q24H [facility] Last Admin: 06/09/24 20:39 Dose: 30 mg Documented By: JULIA Dextrose/Lactated Ringer's (D5lr) 1,000 mls @ 125 mls/hr IVCONT .Q8H [facility] Last Admin: 06/10/24 04:56 Dose: 125 mls/hr Documented By: DORINA Magnesium Hydroxide (Milk Of Magnesia 30 Ml Oral.Susp) 30 ml PO DAILY PRN PRN Reason: Constipation Melatonin (Melatonin 3 Mg Tablet) 6 mg PO BEDTIME PRN PRN Reason: Insomnia Morphine Sulfate (Morphine Sulfate 4 Mg/Ml Cartridge) 2 mg IVPUSH Q4H PRN; Protocol PRN Reason: Pain, Severe (Pain Scale 7-10) Sodium Chloride (0.9 % Sodium Chloride Flush 3 Ml Syringe) 3 ml IVFLUSH QSHIFT [facility] Last Admin: 06/10/24 08:12 Dose: Not Given Documented By: ELEUTERIO Non-Admin Reason: IV Running Labs 06/10/24 05:48 06/10/24 05:48 Labs: Laboratory Results - last 24 hr 06/09/24 06/09/24 06/09/24 16:03 17:07 19:14 MCV 90.0 MCH 31.6 MCHC 35.1 RDW 13.2 Plt Count 191 MPV 9.8 Immature Gran % (Auto) 0.2 Neut % (Auto) 71.5 Lymph % (Auto) 12.8 L [place] % (Auto) 15.2 H Eos % (Auto) 0.0 Baso % (Auto) 0.3 Lymph # (Auto) 0.8 L [place] # (Auto) 0.9 Eos # (Auto) 0.0 Baso # (Auto) 0.0 Abs Immat Gran (auto) 0.01 Absolute Neuts (auto) 4.2 Absolute Nucleated RBC 0.000 Nucleated RBC % (auto) 0.0 Neutrophils % (Manual) Band Neutrophils % Lymphocytes % (Manual) Monocytes % (Manual) Metamyelocytes % Abs Neuts (Manual) Lymphocytes # (Manual) Monocytes # (Manual) Toxic Vacuolation Dohle Bodies Platelet Estimate Plt Morphology Comment RBC Morphology Anion Gap 21 H Estim Creat Clear Calc 23.9 Estimated GFR 33 Random Glucose 162 H Calcium 10.2 Magnesium 2.2 Total Bilirubin 0.7 AST 15 ALT 20 Alkaline Phosphatase 35 L Total Creatine Kinase 98 Troponin I High Sens 13.0 Total Protein 7.2 Albumin 4.5 Lipase 44 Urine Color Dark Yellow Urine Appearance Clear Urine pH 5.0 Ur Specific [place] 1.020 Urine Protein 100 (2+) H Urine Glucose (UA) Negative Urine Ketones Negative Urine Blood Negative Urine Nitrite Negative Ur Leukocyte Esterase Negative Urine RBC 0-2 Urine WBC 0-5 Ur Squamous Epith Cells 0-2 Urine Bacteria None Seen Hyaline Casts >20 Ethyl Alcohol < 10 Influenza Type A (PCR) NEGATIVE Influenza Type B (PCR) NEGATIVE RSV RNA Qual (PCR) NEGATIVE SARS-CoV-2 RNA (RT-PCR) NEGATIVE 06/10/24 05:48 MCV 90.4 MCH 32.0 MCHC 35.4 RDW 13.1 Plt Count 166 MPV 10.4 Immature Gran % (Auto) Cancelled Neut % (Auto) Cancelled Lymph % (Auto) Cancelled [place] % (Auto) Cancelled Eos % (Auto) Cancelled Baso % (Auto) Cancelled Lymph # (Auto) Cancelled [place] # (Auto) Cancelled Eos # (Auto) Cancelled Baso # (Auto) Cancelled Abs Immat Gran (auto) Cancelled Absolute Neuts (auto) Cancelled Absolute Nucleated RBC 0.000 Nucleated RBC % (auto) 0.0 Neutrophils % (Manual) 67 Band Neutrophils % 17 H Lymphocytes % (Manual) 9 L Monocytes % (Manual) 6 Metamyelocytes % 1 Abs Neuts (Manual) 3.6 Lymphocytes # (Manual) 0.4 L Monocytes # (Manual) 0.3 Toxic Vacuolation PRESENT Dohle Bodies PRESENT Platelet Estimate NORMAL Plt Morphology Comment NORMAL RBC Morphology NORMAL Anion Gap 22 H Estim Creat Clear Calc 26.7 Estimated GFR 36 Random Glucose 168 H Calcium 9.5 D Magnesium Total Bilirubin AST ALT Alkaline Phosphatase Total Creatine Kinase Troponin I High Sens Total Protein Albumin Lipase Urine Color Urine Appearance Urine pH Ur Specific [place] Urine Protein Urine Glucose (UA) Urine Ketones Urine Blood Urine Nitrite Ur Leukocyte Esterase Urine RBC Urine WBC Ur Squamous Epith Cells Urine Bacteria Hyaline Casts Ethyl Alcohol Influenza Type A (PCR) Influenza Type B (PCR) RSV RNA Qual (PCR) SARS-CoV-2 RNA (RT-PCR) Procedures Date of Service Date of Service: 06/10/24 Progress Note: A&P Assessment and plan (1) Incarcerated inguinal hernia: Status: Acute (2) SBO (small bowel obstruction): Status: Acute Plan 74-year-old male patient admitted with small-bowel obstruction and incarcerated inguinal hernia on the right side, possible femoral hernia. Patient is comfortable this morning with no abdominal pain or groin pain. BUN/creatinine increased to 72/1.85 this morning. Continue NPO with IV hydration. Awaiting medical evaluation for preop risk stratification. Time Spent With Patient Time: Total time managing care of this patient today ____ minutes. Quality Stroke Does the patient have a stroke diagnosis?: No VTE Prior VTE?: No VTE Risk Level:: Surgical - moderate VTE Device Contraindication: N/A - Device Ordered VTE Drug Contraindication: N/A - Med Ordered
[2024-06-10] MEDS: ondansetron HCL 4 MG/2 ML VIAL IVPUSH (11:14)
--- NOTE | 2024-06-10 13:39 | P.CONHOSP_ITS ---
History of Present Illness Data of Consult Service Date: 06/10/24 Primary Care Provider: Melvin Cormier NP HPI 74-year-old man admitted by general surgery for small bowel obstruction and incarcerated hernia. Patient was having weakness, nausea, vomiting, poor p.o. intake for 1 week. Patient denied any recent illness, travel, sick contacts. An NG tube was attempted x2 without success. Initial creatinine was noted to be elevated 1.97 but now down to 1.85 today after IV fluid initiation. His blood pressure has been noted to be low likely secondary to hypovolemia. Patient is reporting some mild nausea at this time and chronic back pain. Review of Systems 2 Review of Systems: Denies any recent fever chills or decrease in appetite respiratory denies any shortness of breath or cough cardiovascular denied chest pain gastrointestinal denies any dysphagia abdominal pain nausea vomiting or diarrhea genitourinary denies any dysuria frequency or hematuria musculoskeletal denies any joint pain or swelling neuropsych denies any weakness or seizures all other systems reviewed are negative FOR[facility]LY [facility] Medical History High cholesterol HTN (hypertension) Social History (Updated 06/09/24 @ 17:05 by Phoebe Mason DO) Household Members: None Housing: Apartment Do you presently have visiting nurse or other home services: No Alcohol intake: current Alcohol intake frequency: holidays/special occasions only Patient Tobacco Use Status: Current everyday Tobacco user Tobacco use type: Cigarette Cigarettes Per Day: 3 Years Smoked: 30 Smoked in Last 30 Days: Yes Patient Interested in Nicotine Replacement: No Patient Given Instructions on How to Stop Smoking: No (pt refused) Second Hand Smoke Exposure: No Use of substances other than those prescribed or required for medical reasons: Yes Substance Use Type: Marijuana Substance Use Frequency: Weekly Last Used Substance: Days (ago) Currently Displaying Signs/Symptoms of Drug Intoxication Withdrawal: No Any prior treatment program specific to substance use: No Have you been hit, kicked, punched, or otherwise hurt by someone within the past year? If so, by whom?: No Do you feel safe in your current relationship?: No Current Relationship Is there a partner from a previous relationship who is making you feel unsafe now?: No Are you made to feel afraid or neglected: No Advance Directives: No Advance Directives Information Provided: Yes Do you have a plan to hurt others: No Plan Recently lost weight without trying: No Eating poorly because of decreased appetite: Yes Nutrition Risks: Poor intake 0-25% >4 days Poor oral hygiene: No service: No Meds Allergies Allergy/AdvReac Type Severity Reaction Status Date / Time aspirin [ASPIRIN] AdvReac Intermediate UPSET Verified 06/09/24 15:17 STOMACH Active Medications: Current Medications Acetaminophen (Acetaminophen 325 Mg Tablet) 650 mg PO Q6H PRN PRN Reason: Pain, Mild (Pain Scale 1-3), fever or headache Enoxaparin Sodium (Enoxaparin Sodium 30 Mg/0.3 Ml Syringe) 30 mg SUBCUT Q24H [facility] Last Admin: 06/09/24 20:39 Dose: 30 mg Dextrose/Lactated Ringer's (D5lr) 1,000 mls @ 125 mls/hr IVCONT .Q8H [facility] Last Admin: 06/10/24 11:52 Dose: 125 mls/hr Magnesium Hydroxide (Milk Of Magnesia 30 Ml Oral.Susp) 30 ml PO DAILY PRN PRN Reason: Constipation Melatonin (Melatonin 3 Mg Tablet) 6 mg PO BEDTIME PRN PRN Reason: Insomnia Morphine Sulfate (Morphine Sulfate 4 Mg/Ml Cartridge) 2 mg IVPUSH Q4H PRN; Protocol PRN Reason: Pain, Severe (Pain Scale 7-10) Ondansetron HCl (Ondansetron Hcl 4 Mg/2 Ml Vial) 4 mg IVPUSH Q8H PRN PRN Reason: Nausea Last Admin: 06/10/24 11:14 Dose: 4 mg Sodium Chloride (0.9 % Sodium Chloride Flush 3 Ml Syringe) 3 ml IVFLUSH QSHIFT [facility] Last Admin: 06/10/24 08:12 Dose: Not Given Home Medications ?Medication ?Instructions ?Recorded ?Confirmed ?Last Taken ?Type atorvastatin 80 mg tablet 40 mg PO DAILY 06/09/24 06/09/24 Unknown History carisoprodol 350 mg tablet (Soma) 350 mg PO QID 06/09/24 06/09/24 Unknown History lisinopril 20 mg tablet 20 mg PO DAILY 06/09/24 06/09/24 Unknown History Physical Exam 2 Vital Signs and Narrative: Vital Signs: Last Vital Signs Temp 98.1 F 06/10/24 06:54 Pulse 78 06/10/24 06:54 Resp 16 06/10/24 06:54 BP 96/60 06/10/24 06:54 Pulse Ox 93 06/10/24 03:26 O2 Del Method Room Air 06/10/24 03:26 BMI result Body Mass Index 18.1 Appearing in no acute distress head is normocephalic atraumatic eyes pupils are PERRLA sclera is anicteric mouth throat mucous membranes are intact and moist neck is supple no lymphadenopathy, no JVD noted lung sounds are clear to auscultation heart regular rate rhythm, clear S1, S2 positive bowel sounds, abdomen is soft, nontender neuro patient is alert x3, no focal deficits Results Labs 06/10/24 05:48 06/10/24 05:48 Labs: Laboratory Results - last 24 hr 06/09/24 06/09/24 06/09/24 16:03 17:07 19:14 MCV 90.0 MCH 31.6 MCHC 35.1 RDW 13.2 Plt Count 191 MPV 9.8 Immature Gran % (Auto) 0.2 Neut % (Auto) 71.5 Lymph % (Auto) 12.8 L [place] % (Auto) 15.2 H Eos % (Auto) 0.0 Baso % (Auto) 0.3 Lymph # (Auto) 0.8 L [place] # (Auto) 0.9 Eos # (Auto) 0.0 Baso # (Auto) 0.0 Abs Immat Gran (auto) 0.01 Absolute Neuts (auto) 4.2 Absolute Nucleated RBC 0.000 Nucleated RBC % (auto) 0.0 Neutrophils % (Manual) Band Neutrophils % Lymphocytes % (Manual) Monocytes % (Manual) Metamyelocytes % Abs Neuts (Manual) Lymphocytes # (Manual) Monocytes # (Manual) Toxic Vacuolation Dohle Bodies Platelet Estimate Plt Morphology Comment RBC Morphology Anion Gap 21 H Estim Creat Clear Calc 23.9 Estimated GFR 33 Random Glucose 162 H Calcium 10.2 Magnesium 2.2 Total Bilirubin 0.7 AST 15 ALT 20 Alkaline Phosphatase 35 L Total Creatine Kinase 98 Troponin I High Sens 13.0 Total Protein 7.2 Albumin 4.5 Lipase 44 Urine Color Dark Yellow Urine Appearance Clear Urine pH 5.0 Ur Specific [place] 1.020 Urine Protein 100 (2+) H Urine Glucose (UA) Negative Urine Ketones Negative Urine Blood Negative Urine Nitrite Negative Ur Leukocyte Esterase Negative Urine RBC 0-2 Urine WBC 0-5 Ur Squamous Epith Cells 0-2 Urine Bacteria None Seen Hyaline Casts >20 Ethyl Alcohol < 10 Influenza Type A (PCR) NEGATIVE Influenza Type B (PCR) NEGATIVE RSV RNA Qual (PCR) NEGATIVE SARS-CoV-2 RNA (RT-PCR) NEGATIVE 06/10/24 05:48 MCV 90.4 MCH 32.0 MCHC 35.4 RDW 13.1 Plt Count 166 MPV 10.4 Immature Gran % (Auto) Cancelled Neut % (Auto) Cancelled Lymph % (Auto) Cancelled [place] % (Auto) Cancelled Eos % (Auto) Cancelled Baso % (Auto) Cancelled Lymph # (Auto) Cancelled [place] # (Auto) Cancelled Eos # (Auto) Cancelled Baso # (Auto) Cancelled Abs Immat Gran (auto) Cancelled Absolute Neuts (auto) Cancelled Absolute Nucleated RBC 0.000 Nucleated RBC % (auto) 0.0 Neutrophils % (Manual) 67 Band Neutrophils % 17 H Lymphocytes % (Manual) 9 L Monocytes % (Manual) 6 Metamyelocytes % 1 Abs Neuts (Manual) 3.6 Lymphocytes # (Manual) 0.4 L Monocytes # (Manual) 0.3 Toxic Vacuolation PRESENT Dohle Bodies PRESENT Platelet Estimate NORMAL Plt Morphology Comment NORMAL RBC Morphology NORMAL Anion Gap 22 H Estim Creat Clear Calc 26.7 Estimated GFR 36 Random Glucose 168 H Calcium 9.5 D Magnesium Total Bilirubin AST ALT Alkaline Phosphatase Total Creatine Kinase Troponin I High Sens Total Protein Albumin Lipase Urine Color Urine Appearance Urine pH Ur Specific [place] Urine Protein Urine Glucose (UA) Urine Ketones Urine Blood Urine Nitrite Ur Leukocyte Esterase Urine RBC Urine WBC Ur Squamous Epith Cells Urine Bacteria Hyaline Casts Ethyl Alcohol Influenza Type A (PCR) Influenza Type B (PCR) RSV RNA Qual (PCR) SARS-CoV-2 RNA (RT-PCR) Imaging Radiologist's Impressions: Impressions Chest X-Ray 06/09/24 17:18 IMPRESSION: Unremarkable examination. Abdomen/Pelvis CT 06/09/24 17:31 IMPRESSION: High-grade small bowel obstruction secondary to a right inguinal hernia containing a loop of small bowel. No evidence of bowel ischemia or perforation. This critical result was discussed with Phoebe Mason MD at 1806 on 06/09/2024 and it was ascertained that the content and urgency of the report was understood at the time of direct communication. Chest X-Ray 06/09/24 19:54 IMPRESSION: There is a catheter overlying the lateral right chest. The proximal and distal portions of this catheter are collimated from the [id number]. There is no evidence of a catheter traversing the esophagus. The heart and lungs are unchanged in appearance compared with examination performed at 5:10 PM on same day. Assessment and Plan (1) Incarcerated inguinal hernia: Status: Acute Plan 74 year old man admitted by general surgery for abdominal distension secondary to incarcerated right inguinal hernia and SBO Inguinal hernia and SBO management as per surgical team NPO likely surgical intervention for tomorrow LALO creatinine trending down likely from hypovolemia from vomiting and poor oral intake continue IV fluids Hypertension likely from hypovolemia Low BP but stable continue IV fluids hold antihypertensive medications HLD hold statin while inpatient smoker Discussed the importance of smoking cessation NRT Alcohol use Reports drinking 2 beers a day Denies any withdrawal symptoms We will place on CIWA DVT prophylaxis with Lovenox Full code Medical consultation complete. Will sign off.
[2024-06-10 15:24] VITALS: BP 97/64; PULSE 92; RESP 18; TEMP 36.6; O2SAT 92
[2024-06-10 19:41] VITALS: BP 107/74; PULSE 97; RESP 18; TEMP 36.3; O2SAT 93
[2024-06-11] VITALS (14 sets, daily range): BP systolic 102–146; BP diastolic 42–78; PULSE 70–110; RESP 15–106; TEMP 36.1–37.5; O2SAT 91–96
[2024-06-11] MEDS: Dextrose 5 % and Lactated Ring 1,000 ML 125 ML IVCONT ×3 (03:58→23:26)
[2024-06-11] MEDS: ondansetron HCL 4 MG/2 ML VIAL IVPUSH (06:18)
--- NOTE | 2024-06-11 07:49 | MHC.SHP ---
Pre-Procedural Eval Section A - 24 Hr Update-Section A only Date of Service: 06/11/24 The patient is an INPATIENT: Yes Changes since office visit: Yes Patient answered all questions; No Cold of Flu in the past 2 weeks, No New Medical Problems and No Changes in Medication The patient has been examined within 24 hours of the surgical procedure. The History & Physical has been completed within 30 days and I have reviewed it.: Yes Section B - Complete if H&P > 30 days Chief Complaint: Small bowel obstruction, Right inguinal hernia Allergies: Allergies Allergy/AdvReac Type Severity Reaction Status Date / Time aspirin [ASPIRIN] AdvReac Intermediate UPSET Verified 06/09/24 15:17 STOMACH Plan Diagnosis/Plan: Unchanged I have reviewed the history and physical and performed a pertinent physical examination on my patient. No changes have occurred unless specified. Time Spent With Patient Time: Total time managing care of this patient today ____ minutes.
--- NOTE | 2024-06-11 09:25 | P.OP_ITS ---
Operative Note Operative Note Date of Service: 06/11/24 Narrative: Preoperative diagnosis: Right inguinal hernia incarcerated, small-bowel obstruction Postoperative diagnosis: Right femoral hernia incarcerated, small-bowel obstruction Procedure: Repair of incarcerated femoral hernia Surgeon: Jeremy Dickson MD Hospital Ward Clerk: None Anesthesia: General endotracheal Indications for procedure: 74-year-old male patient presenting with multiple medical problems found to have incarcerated right inguinal hernia by CT with subsequent small-bowel obstruction. He presents now for repair of this right inguinal hernia. Operative findings: An incarcerated right femoral hernia was identified. The bowel was found to be viable however surrounding fatty tissue was necrotic. No bowel resection was required. Specimen: Hernia sac Estimated blood loss: 2 mL Complications: None Procedure details: Patient was brought to the OR and placed in a supine position. After administering rapid sequence general anesthesia, an orogastric tube was placed and a proximally 3 L of bilious fluid evacuated. A Mcrae catheter was also inserted using a coude catheter. The patient's abdomen was then prepped with ChloraPrep and draped in a sterile fashion. A surgical time- out was called the consent confirmed. Patient received preoperative antibiotics and Venodyne boots were in place. Local anesthesia consisting of 0.5% Marcaine with epinephrine was then infiltrated over the right inguinal ligament. Incision was then made with a scalpel over the right inguinal ligament. This was carried out through subcutaneous tissue, past Jacinto's fascia and then up to the external oblique aponeurosis. The hernia was found below the inguinal canal suggestive of a femoral hernia. The hernia sac was dissected free from the surrounding subcutaneous tissue. The sac was entered and the above findings noted. The femoral canal was opened further by incising the inguinal ligament. This allowed reduction of the herniated bowel. This was found to be completely viable without evidence of necrosis. Some of the surrounding fatty preperitoneal fat was found to be necrotic. Portion of the peritoneal sac was excised and sent to pathology for further examination. The femoral space was then closed using 2 interrupted 1 Tycron sutures to approximate the inguinal canal to the Riley's ligament. This was made loose enough to prevent obstruction of the femoral vein. Wounds were then irrigated with saline solution and suctioned dry. Wounds were checked for hemostasis. Jacinto's fascia was then reapproximated using interrupted 3-0 Polysorb sutures. Dermis was reapproximated using interrupted 3-0 Polysorb sutures. Skin was closed using a running subcuticular 4-0 Polysorb suture. Steri-Strips, 2 x 2 gauze and Tegaderm were then applied. The patient tolerated the procedure well. Sponge, instrument, and needle counts reported as correct. The patient was transferred to PACU in stable condition.
--- NOTE | 2024-06-11 10:22 | PM.EVENT ---
Event Note Date of Service: 06/11/24 Event Note: Called by PROFESSIONAL NURSING TUTOR for hypoxia, on 4-5 liters via nc satting at 90-91%. s/p repair of incarcerated femoral hernia Patient awake but sleepy as he is fresh postop Lung sounds rhonchi Heart regular rate and rhythm stat CXR showing right airspace opacity favoring aspiration pneumonia Start IV Zosyn Speech therapy consultation Time Spent With Patient Time: Total time managing care of this patient today ____ minutes.
--- NOTE | 2024-06-11 10:26 | HO.ANESPROP2 ---
[facility] Active Problems Active Problems: All Active Problems Incarcerated inguinal hernia (Acute) SBO (small bowel obstruction) (Acute) LALO (acute kidney injury) (Acute) Past Medical History Medical History High cholesterol HTN (hypertension) Family History Family history of problems with anesthesia: No Surgical History History of Problems with Anesthesia: No Social History Social History (Updated 06/09/24 @ 17:05 by Phoebe Mason DO) Household Members: None Housing: Apartment Do you presently have visiting nurse or other home services: No Alcohol intake: current Alcohol intake frequency: holidays/special occasions only Patient Tobacco Use Status: Current everyday Tobacco user Tobacco use type: Cigarette Cigarettes Per Day: 3 Years Smoked: 30 Smoked in Last 30 Days: Yes Patient Interested in Nicotine Replacement: No Patient Given Instructions on How to Stop Smoking: No (pt refused) Second Hand Smoke Exposure: No Use of substances other than those prescribed or required for medical reasons: Yes Substance Use Type: Marijuana Substance Use Frequency: Weekly Last Used Substance: Days (ago) Currently Displaying Signs/Symptoms of Drug Intoxication Withdrawal: No Any prior treatment program specific to substance use: No Have you been hit, kicked, punched, or otherwise hurt by someone within the past year? If so, by whom?: No Do you feel safe in your current relationship?: No Current Relationship Is there a partner from a previous relationship who is making you feel unsafe now?: No Are you made to feel afraid or neglected: No Advance Directives: No Advance Directives Information Provided: Yes Do you have a plan to hurt others: No Plan Recently lost weight without trying: No Eating poorly because of decreased appetite: Yes Nutrition Risks: Poor intake 0-25% >4 days Poor oral hygiene: No Meds Allergies Allergy/AdvReac Type Severity Reaction Status Date / Time aspirin [ASPIRIN] AdvReac Intermediate UPSET Verified 06/09/24 15:17 STOMACH Active Medications: Current Medications Acetaminophen (Acetaminophen 325 Mg Tablet) 650 mg PO Q6H PRN PRN Reason: Pain, Mild (Pain Scale 1-3), fever or headache Enoxaparin Sodium (Enoxaparin Sodium 30 Mg/0.3 Ml Syringe) 30 mg SUBCUT Q24H [facility] Last Admin: 06/10/24 17:57 Dose: Not Given Dextrose/Lactated Ringer's (D5lr) 1,000 mls @ 125 mls/hr IVCONT .Q8H REPLACED BY [facility] Last Admin: 06/11/24 03:58 Dose: 125 mls/hr Magnesium Hydroxide (Milk Of Magnesia 30 Ml Oral.Susp) 30 ml PO DAILY PRN PRN Reason: Constipation Melatonin (Melatonin 3 Mg Tablet) 6 mg PO BEDTIME PRN PRN Reason: Insomnia Morphine Sulfate (Morphine Sulfate 4 Mg/Ml Cartridge) 2 mg IVPUSH Q4H PRN; Protocol PRN Reason: Pain, Severe (Pain Scale 7-10) Ondansetron HCl (Ondansetron Hcl 4 Mg/2 Ml Vial) 4 mg IVPUSH Q8H PRN PRN Reason: Nausea Last Admin: 06/11/24 06:18 Dose: 4 mg Sodium Chloride (0.9 % Sodium Chloride Flush 3 Ml Syringe) 3 ml IVFLUSH QSHIFT REPLACED BY [facility] Last Admin: 06/11/24 07:49 Dose: Not Given Home Medications ?Medication ?Instructions ?Recorded ?Confirmed ?Last Taken ?Type atorvastatin 80 mg tablet 40 mg PO DAILY 06/09/24 06/09/24 Unknown History carisoprodol 350 mg tablet (Soma) 350 mg PO QID 06/09/24 06/09/24 Unknown History lisinopril 20 mg tablet 20 mg PO DAILY 06/09/24 06/09/24 Unknown History Exam Height,Weight and Vital Signs: Height 5 ft 8 in Weight 54 kg Last Vital Signs Temp 98.2 F 06/11/24 10:15 Pulse 88 06/11/24 10:15 Resp 18 06/11/24 10:15 BP 107/63 06/11/24 10:15 Pulse Ox 93 06/11/24 10:15 O2 Del Method Nasal Cannula 06/11/24 10:15 O2 Flow Rate 5 06/11/24 10:15 Pertinent Lab Results Pertinent Lab Results: Laboratory Tests 06/09/24 06/09/24 06/09/24 16:03 17:07 19:14 WBC 5.9 RBC 5.00 Hgb 15.8 Hct 45.0 MCV 90.0 MCH 31.6 MCHC 35.1 RDW 13.2 Plt Count 191 MPV 9.8 Immature Gran % (Auto) 0.2 Neut % (Auto) 71.5 Lymph % (Auto) 12.8 L [place] % (Auto) 15.2 H Eos % (Auto) 0.0 Baso % (Auto) 0.3 Lymph # (Auto) 0.8 L [place] # (Auto) 0.9 Eos # (Auto) 0.0 Baso # (Auto) 0.0 Abs Immat Gran (auto) 0.01 Absolute Neuts (auto) 4.2 Absolute Nucleated RBC 0.000 Nucleated RBC % (auto) 0.0 Neutrophils % (Manual) Band Neutrophils % Lymphocytes % (Manual) Monocytes % (Manual) Metamyelocytes % Abs Neuts (Manual) Lymphocytes # (Manual) Monocytes # (Manual) Toxic Vacuolation Dohle Bodies Platelet Estimate Plt Morphology Comment RBC Morphology Sodium 137 Potassium 4.0 Chloride 93 L Carbon Dioxide 27 Anion Gap 21 H BUN 69 H Creatinine 1.97 H Estim Creat Clear Calc 23.9 Estimated GFR 33 Random Glucose 162 H Calcium 10.2 Magnesium 2.2 Total Bilirubin 0.7 AST 15 ALT 20 Alkaline Phosphatase 35 L Total Creatine Kinase 98 Troponin I High Sens 13.0 Total Protein 7.2 Albumin 4.5 Lipase 44 Urine Color Dark Yellow Urine Appearance Clear Urine pH 5.0 Ur Specific [place] 1.020 Urine Protein 100 (2+) H Urine Glucose (UA) Negative Urine Ketones Negative Urine Blood Negative Urine Nitrite Negative Ur Leukocyte Esterase Negative Urine RBC 0-2 Urine WBC 0-5 Ur Squamous Epith Cells 0-2 Urine Bacteria None Seen Hyaline Casts >20 Ethyl Alcohol < 10 Influenza Type A (PCR) NEGATIVE Influenza Type B (PCR) NEGATIVE RSV RNA Qual (PCR) NEGATIVE SARS-CoV-2 RNA (RT-PCR) NEGATIVE 06/10/24 05:48 WBC 4.3 L RBC 4.81 Hgb 15.4 Hct 43.5 MCV 90.4 MCH 32.0 MCHC 35.4 RDW 13.1 Plt Count 166 MPV 10.4 Immature Gran % (Auto) Cancelled Neut % (Auto) Cancelled Lymph % (Auto) Cancelled [place] % (Auto) Cancelled Eos % (Auto) Cancelled Baso % (Auto) Cancelled Lymph # (Auto) Cancelled [place] # (Auto) Cancelled Eos # (Auto) Cancelled Baso # (Auto) Cancelled Abs Immat Gran (auto) Cancelled Absolute Neuts (auto) Cancelled Absolute Nucleated RBC 0.000 Nucleated RBC % (auto) 0.0 Neutrophils % (Manual) 67 Band Neutrophils % 17 H Lymphocytes % (Manual) 9 L Monocytes % (Manual) 6 Metamyelocytes % 1 Abs Neuts (Manual) 3.6 Lymphocytes # (Manual) 0.4 L Monocytes # (Manual) 0.3 Toxic Vacuolation PRESENT Dohle Bodies PRESENT Platelet Estimate NORMAL Plt Morphology Comment NORMAL RBC Morphology NORMAL Sodium 138 Potassium 3.7 Chloride 93 L Carbon Dioxide 27 Anion Gap 22 H BUN 72 H Creatinine 1.85 H Estim Creat Clear Calc 26.7 Estimated GFR 36 Random Glucose 168 H Calcium 9.5 D Magnesium Total Bilirubin AST ALT Alkaline Phosphatase Total Creatine Kinase Troponin I High Sens Total Protein Albumin Lipase Urine Color Urine Appearance Urine pH Ur Specific [place] Urine Protein Urine Glucose (UA) Urine Ketones Urine Blood Urine Nitrite Ur Leukocyte Esterase Urine RBC Urine WBC Ur Squamous Epith Cells Urine Bacteria Hyaline Casts Ethyl Alcohol Influenza Type A (PCR) Influenza Type B (PCR) RSV RNA Qual (PCR) SARS-CoV-2 RNA (RT-PCR) Airway Mallampati Class: III TM Dist: >3cm Neck ROM: Full Denture: Upper and Lower Assessment and Plan Assessment Anesthesia Assessment: Anesthesia Plan Discussed and Chart Reviewed Final Anesthetic Review Family History of Problems with Anesthesia: No History of Problems with Anesthesia: No NPO: Yes ASA Class: III and Emergency Final Preanesthetic Review: No Changes in Pt Med Stat, Meds/Allgs Chart Reviewed, Consent Obtained/Reviewed and Anes Risks/Benef Reviewed Patient Risk: Intermediate Procedure Risk: Intermediate Anesthetic Plan Anesthetic Plan: GA Disposition: Standard PACU
--- NOTE | 2024-06-11 10:36 | PC.NURSE ---
pt 98 % 4liters n/c
[2024-06-11] MEDS: Piperacillin Sodium/Tazobactam 3.375 GM in 0.9 % Sodium Chloride 50 ML IV ×3 (11:38→22:51)
--- NOTE | 2024-06-11 13:19 | MHC.CM.PN ---
PT REPORTS HE LIVES ALONE AND HAS [employer] CLERK SERVICES TWICE PER WEEK PT HAS NO DME PT HAS NO HCP AND DOES NOT WANT TO COMPLETE ONE TODAY PCP: JOEY JASMINE IMM DELIVERED DCP: HOME VIA PRIVATE TRANSPORT
[2024-06-12 03:36] VITALS: BP 126/66; PULSE 68; RESP 16; TEMP 36.2; O2SAT 96
[2024-06-12] MEDS: Piperacillin Sodium/Tazobactam 3.375 GM in 0.9 % Sodium Chloride 50 ML IV ×4 (04:52→22:21)
[2024-06-12 07:00] VITALS: BP 118/57; PULSE 66; RESP 18; TEMP 36.4; O2SAT 98
[2024-06-12] MEDS: Dextrose 5 % and Lactated Ring 1,000 ML 125 ML IVCONT ×3 (07:30→22:16)
--- NOTE | 2024-06-12 08:01 | PM.PNGS ---
Subjective Subjective Date of Service: 06/12/24 <Nany Lance PA-C - Last Filed: 06/12/24 08:06> 06/12/24 <Jeremy Dickson MD - Last Filed: 06/12/24 09:43> Interval history: Feels overall improved, no nausea, taking ice chips. Passing flatus and had loose stools yesterday. Has not been OOB yet. Mild incisional pain. Denies bloating. <Nany Lance PA-C - Last Filed: 06/12/24 08:06> Physical Exam Vital Signs: Vital Signs: Last Vital Signs Temp 97.6 F 06/12/24 07:00 Pulse 66 06/12/24 07:00 Resp 18 06/12/24 07:00 BP 118/57 L 06/12/24 07:00 Pulse Ox 98 06/12/24 07:00 O2 Del Method Nasal Cannula 06/12/24 07:00 O2 Flow Rate 3 06/12/24 07:00 BMI result Body Mass Index 18.1 <Nany Lance PA-C - Last Filed: 06/12/24 08:06> Const: General: comfortable, no acute distress and alert <GILA Lora Last Filed: 06/12/24 08:06> Orientation/consciousness: patient oriented x3 <GILA Lora Last Filed: 06/12/24 08:06> HEENT: Other: NGT with clearish output <Nany Lance PA-C - Last Filed: 06/12/24 08:06> Resp: Effort & Inspection: normal respiratory effort <Nany Lance PA-C - Last Filed: 06/12/24 08:06> GI: Inspection: No distended and Yes incision (dressing clean and intact) <GILA Lora Last Filed: 06/12/24 08:06> Palpation (GI): Soft to palpation, Tenderness to palpation present (GI) (mild incisional) and no guarding <GILA Lora Last Filed: 06/12/24 08:06> Percussion: Yes normal to percussion <Nany Lance PA-C - Last Filed: 06/12/24 08:06> Skin: General skin exam: no rashes or lesions noted <Nany Lance PA-C - Last Filed: 06/12/24 08:06> Neuro: General: patient oriented x3 and moves all extremities <Nany Lance PA-C - Last Filed: 06/12/24 08:06> Extrem: General: Yes no clubbing, cyanosis or edema <Nany Lance PA-C - Last Filed: 06/12/24 08:06> Objective Data Active Medications Acetaminophen (Acetaminophen 325 Mg Tablet) 650 mg PO Q6H PRN PRN Reason: Pain, Mild (Pain Scale 1-3), fever or headache Enoxaparin Sodium (Enoxaparin Sodium 30 Mg/0.3 Ml Syringe) 30 mg SUBCUT Q24H REPLACED BY [facility] Last Admin: 06/10/24 17:57 Dose: Not Given Documented By: ELEUTERIO Non-Admin Reason: med held by Melinda Dextrose/Lactated Ringer's (D5lr) 1,000 mls @ 125 mls/hr IVCONT .Q8H REPLACED BY [facility] Last Admin: 06/12/24 07:30 Dose: 125 mls/hr Documented By: FREDDY Piperacillin Sod/Tazobactam (Sod 3.375 gm/ Sodium Chloride) 50 mls @ 100 mls/hr IV Q6H REPLACED BY [facility] Last Infusion: 06/12/24 05:25 Dose: Infused Documented By: CASTIL[place]ia Magnesium Hydroxide (Milk Of Magnesia 30 Ml Oral.Susp) 30 ml PO DAILY PRN PRN Reason: Constipation Melatonin (Melatonin 3 Mg Tablet) 6 mg PO BEDTIME PRN PRN Reason: Insomnia Morphine Sulfate (Morphine Sulfate 4 Mg/Ml Cartridge) 2 mg IVPUSH Q4H PRN; Protocol PRN Reason: Pain, Severe (Pain Scale 7-10) Ondansetron HCl (Ondansetron Hcl 4 Mg/2 Ml Vial) 4 mg IVPUSH Q8H PRN PRN Reason: Nausea Last Admin: 06/11/24 06:18 Dose: 4 mg Documented By: ROCIO Sodium Chloride (0.9 % Sodium Chloride Flush 3 Ml Syringe) 3 ml IVFLUSH QSHIFT REPLACED BY [facility] Last Admin: 06/12/24 07:31 Dose: Not Given Documented By: FREDDY Non-Admin Reason: IV Running <Nany Lance PA-C - Last Filed: 06/12/24 08:06> Labs CBC & Chem 7: 06/10/24 05:48 06/12/24 08:50 <Nany Lance PA-C - Last Filed: 06/12/24 08:06> Procedures Date of Service Date of Service: 06/12/24 <Nany Lance PA-C - Last Filed: 06/12/24 08:06> 06/12/24 <Jeremy Dickson MD - Last Filed: 06/12/24 09:43> Progress Note: A&P Assessment and plan (1) Incarcerated inguinal hernia: Status: Acute <GILA Lora Last Filed: 06/12/24 08:06> (2) SBO (small bowel obstruction): Status: Acute <Nany Lance PA-C - Last Filed: 06/12/24 08:06> (3) LALO (acute kidney injury): Status: Acute <GILA Lora Last Filed: 06/12/24 08:06> Assessment and Plan: Admitted for Right femoral hernia incarcerated, small-bowel obstruction now POD #1 s/p Repair of incarcerated femoral hernia. Doing fairly well post op, now with return of GI function. Pain well controlled. VSS. Abd exam- dressing clean and intact, abd nondistended, appropriate postop tenderness. NGT had moderate amount overnight but mostly clear. Will clamp NGT, check residual in 4 hrs and remove if remains asymptomatic and residual low. Repeat lytes. Eber hurtado. Encouraged OOB/ambulation. Patient comfortable with plan. <Nany Lance PA-C - Last Filed: 06/12/24 08:06> Admitted for Right femoral hernia incarcerated, small-bowel obstruction now POD #1 s/p Repair of incarcerated femoral hernia. Doing fairly well post op, now with return of GI function. Pain well controlled. VSS. Abd exam- dressing clean and intact, abd nondistended, appropriate postop tenderness. NGT had moderate amount overnight but mostly clear. Will clamp NGT, check residual in 4 hrs and remove if remains asymptomatic and residual low. Repeat lytes. Dc hurtado. Encouraged OOB/ambulation. Patient comfortable with plan. Patient seen and examined, and agree with the above assessment and plan. AM labs : K+ 2.6; will bolus. <Jeremy Dickson MD - Last Filed: 06/12/24 09:43> Time Spent With Patient Time: Total time managing care of this patient today ____ minutes. <Nany Lance PA-C - Last Filed: 06/12/24 08:06> Quality Stroke Does the patient have a stroke diagnosis?: No <Nany Lance PA-C - Last Filed: 06/12/24 08:06> VTE Prior VTE?: No <Nany Lance PA-C - Last Filed: 06/12/24 08:06> VTE Risk Level:: Surgical - moderate <Nany Lance PA-C - Last Filed: 06/12/24 08:06> VTE Device Contraindication: N/A - Device Ordered <Nany Lance PA-C - Last Filed: 06/12/24 08:06> VTE Drug Contraindication: N/A - Med Ordered <Nany Lance PA-C - Last Filed: 06/12/24 08:06>
[2024-06-12 09:32] LABS: Anion Gap 13 (12-20)
[2024-06-12 09:39] LABS: Blood Urea Nitrogen 54 mg/dL (9-16); Calcium 8.4 mg/dL (8.4-10.2); Carbon Dioxide 33 mmol/L (22-29); Chloride 101 mmol/L (96-108); Creatinine Clr Calc Pharmacy 35.6; Estimated Glomerular Filt Rate 50; Glucose Fasting 143 mg/dL (60-99); Potassium 2.6 mmol/L (3.3-5.1); Sodium 144 mmol/L (135-145)
[2024-06-12] MEDS: Potassium Chloride/H20 10 MEQ/100 ML PIGGYBACK 100 MEQ IV ×4 (10:11→15:22)
--- NOTE | 2024-06-12 11:11 | MHC.CM.PN ---
Patient not medically cleared for dc. CM will continue to follow.
[2024-06-12 11:37] VITALS: BP 122/58; PULSE 65; RESP 16; TEMP 37.3; O2SAT 100
[2024-06-12 11:49] VITALS: BMI 18.1
--- NOTE | 2024-06-12 11:57 | MHC.CLN ---
NUTRITION CURRENTLY NPO WITH NGT. NGT TO BE CLAMPED TODAY. PATIENT REPORTS THAT HE IS ALWAYS THIN . NUTRITION DX NON SEVERE MALNUTRITION IN THE CONTEXT OF ACUTE ILLNESS. MILD DEPLETION OF BODY FAT AND MUSCLE MASS NOTED. WHEN PO RESUMES, CONSIDER ENSURE BID TO INCREASE NUTRITIONAL INTAKE. SEE CLINICAL NUTRITION ASSESSMENT 06/12/24.
--- NOTE | 2024-06-12 14:10 | MHC.SL.SWA ---
Speech Pathologist Impression: Risk of aspiration, oropharyngeal dysphagia Risk of Aspiration Due to: History of Pneumonia Dysphasia Diet Status: UPGRADE from NPO, start on REGULAR/HONEY THICK Liquid Consistency and Strategies for Safe Swallow: Liquid Intake Recommendation: Honey Thick Liquid Intake Strategies: Small Sips No Straws Solid Food Consistency: Dietary Recommendations: Regular Additional Modifications to Solid Foods: Patient seen for bedside dysphagia evaluation. Noted mildly prolonged period of mastication with solids, but with overall good oral clearance. Coughing on liquids. Recommend START on REGULAR texture diet and HONEY THICK liquids, pills to be administered WHOLE in PUREE. Direct supervision and aspiration precautions. Oral Medication Intake: Whole with Puree Please contact the pharmacy regarding appropriate crushable or liquid drug formulations that are available whenever modified delivery is recommended. Compensatory Strategies and Precautions to be Taken for Safe Swallow: Sitting Upright (90 deg) No Straw Small Bites and Sips Alternate Liquids/Solids Rate of Ingestion Change Avoid Specific Foods Supervision While Eating and Drinking for Safe Swallow: Total Supervision (1:1) Foods to Avoid: Hard, tough to chew solids; mixed consistencies Swallowing Recommended Treatments: Compens. Strategy Educat. Recommendation for Speech: Inpatient Speech Therapy Comment: ACTIVITY THERAPY SPECIALIST will continue to follow to monitor tolerance and to re-assess for potential upgrade. Frequency/Duration: M-F PRN Date Range for Service Req: Timeline to reassess: Lead Java J2Ee Developer Clinican/Clinical Fellow: No Supervisory Statement: I have reviewed and agree with the student/clinical fellow's documentation: N/A Speech Language Pathologist: Charu Carbone M.A., [facility]-ACTIVITY THERAPY SPECIALIST
[2024-06-12 15:38] VITALS: BP 120/58; PULSE 66; RESP 16; TEMP 36.8; O2SAT 99
[2024-06-12] MEDS: 0.9 % Sodium Chloride Flush 3 ML SYRINGE IVFLUSH ×3 (16:35→22:25)
[2024-06-12] MEDS: Enoxaparin Sodium 40 MG/0.4 ML SYRINGE SUBCUT (18:33)
[2024-06-12 19:29] VITALS: BP 106/56; PULSE 60; RESP 14; TEMP 36.7; O2SAT 98
[2024-06-12 23:21] VITALS: BP 99/54; PULSE 55; RESP 16; TEMP 36.4; O2SAT 99
[2024-06-13 03:15] VITALS: BP 110/57; PULSE 52; RESP 18; TEMP 36.1; O2SAT 97
[2024-06-13] MEDS: Dextrose 5 % and Lactated Ring 1,000 ML 125 ML IVCONT (05:15)
[2024-06-13] MEDS: Piperacillin Sodium/Tazobactam 3.375 GM in 0.9 % Sodium Chloride 50 ML IV ×4 (05:19→22:28)
[2024-06-13 06:06] LABS: Anion Gap 12 (12-20); Blood Urea Nitrogen 42 mg/dL (9-16); Calcium 8.2 mg/dL (8.4-10.2); Carbon Dioxide 29 mmol/L (22-29); Chloride 103 mmol/L (96-108); Estimated Glomerular Filt Rate > 60; Glucose Random 125 mg/dL (60-115); Sodium 141 mmol/L (135-145)
[2024-06-13 07:33] VITALS: BP 144/68; PULSE 53; RESP 18; TEMP 36.1; O2SAT 95
--- NOTE | 2024-06-13 07:36 | PM.PNGS ---
Subjective Subjective Date of Service: 06/13/24 <Nany Lance PA-C - Last Filed: 06/13/24 07:41> 06/13/24 <Jeremy Dickson MD - Last Filed: 06/13/24 08:00> Interval history: Feels well this morning. Reports mild incisional pain. Continues to pass flatus and have loose BMs. Has not had anything to eat yet. OOB and ambulated yesterday. <Nany Lance PA-C - Last Filed: 06/13/24 07:41> Physical Exam Vital Signs: Vital Signs: Last Vital Signs Temp 96.9 F 06/13/24 07:33 Pulse 53 06/13/24 07:33 Resp 18 06/13/24 07:33 BP 144/68 H 06/13/24 07:33 Pulse Ox 95 06/13/24 07:33 O2 Del Method Nasal Cannula 06/13/24 07:33 O2 Flow Rate 3 06/13/24 07:33 BMI result Body Mass Index 18.1 <Nany aLnce PA-C - Last Filed: 06/13/24 07:41> Const: General: comfortable, no acute distress and alert <GILA Lora Last Filed: 06/13/24 07:41> Orientation/consciousness: patient oriented x3 <GILA Lora Last Filed: 06/13/24 07:41> Resp: Effort & Inspection: normal respiratory effort <GILA Lora Last Filed: 06/13/24 07:41> GI: Inspection: Yes distended (very mild ) and Yes incision (clean ) <Nany Lance PA-C - Last Filed: 06/13/24 07:41> Palpation (GI): Soft to palpation, Tenderness to palpation present (GI) (mild incisional) and no guarding <GILA Lora Last Filed: 06/13/24 07:41> Skin: General skin exam: no rashes or lesions noted <GILA Lora Last Filed: 06/13/24 07:41> Neuro: General: patient oriented x3 <GILA Lora Last Filed: 06/13/24 07:41> Objective Data Active Medications Acetaminophen (Acetaminophen 325 Mg Tablet) 650 mg PO Q6H PRN PRN Reason: Pain, Mild (Pain Scale 1-3), fever or headache Enoxaparin Sodium (Enoxaparin Sodium 40 Mg/0.4 Ml Syringe) 40 mg SUBCUT Q24H FORMERLY [facility], [facility]1983 Last Admin: 06/12/24 18:33 Dose: 40 mg Documented By: PRAFUL Dextrose/Lactated Ringer's (D5lr) 1,000 mls @ 125 mls/hr IVCONT .Q8H [facility], [facility] Last Admin: 06/13/24 05:15 Dose: 125 mls/hr Documented By: DU Piperacillin Sod/Tazobactam (Sod 3.375 gm/ Sodium Chloride) 50 mls @ 100 mls/hr IV Q6H [facility], [facility]1983 Last Infusion: 06/13/24 05:50 Dose: Infused Documented By: DU Magnesium Hydroxide (Milk Of Magnesia 30 Ml Oral.Susp) 30 ml PO DAILY PRN PRN Reason: Constipation Melatonin (Melatonin 3 Mg Tablet) 6 mg PO BEDTIME PRN PRN Reason: Insomnia Morphine Sulfate (Morphine Sulfate 4 Mg/Ml Cartridge) 2 mg IVPUSH Q4H PRN; Protocol PRN Reason: Pain, Severe (Pain Scale 7-10) Ondansetron HCl (Ondansetron Hcl 4 Mg/2 Ml Vial) 4 mg IVPUSH Q8H PRN PRN Reason: Nausea Last Admin: 06/11/24 06:18 Dose: 4 mg Documented By: ROCIO Sodium Chloride (0.9 % Sodium Chloride Flush 3 Ml Syringe) 3 ml IVFLUSH QSHIFT [facility] Last Admin: 06/13/24 06:56 Dose: Not Given Documented By: MARISELA Non-Admin Reason: IV Running <Nany Lance PA-C - Last Filed: 06/13/24 07:41> Labs CBC & Chem 7: 06/10/24 05:48 06/13/24 05:07 <Nany Lance PA-C - Last Filed: 06/13/24 07:41> Labs: Laboratory Results - last 24 hr 06/12/24 06/13/24 08:50 05:07 Anion Gap 13 12 Estim Creat Clear Calc 35.6 48.0 Estimated GFR 50 > 60 Random Glucose 125 H Fasting Glucose 143 H Calcium 8.4 D 8.2 L <Nany Lance PA-C - Last Filed: 06/13/24 07:41> Procedures Date of Service Date of Service: 06/13/24 <Nany Lance PA-C - Last Filed: 06/13/24 07:41> 06/13/24 <Jeremy Dickson MD - Last Filed: 06/13/24 08:00> Progress Note: A&P Assessment and plan (1) SBO (small bowel obstruction): Status: Acute <Nany Lance PA-C - Last Filed: 06/13/24 07:41> (2) Incarcerated inguinal hernia: Status: Acute <Nany Lance PA-C - Last Filed: 06/13/24 07:41> Assessment and Plan: Admitted for Right femoral hernia incarcerated, small-bowel obstruction now POD #2 s/p Repair of incarcerated femoral hernia. Doing well post op, minimal pain. NGT removed yesterday and diet advanced. Abd exam benign with clean incision, nondistended. Diet as tolerated. Increase activity. ?Aspiration pneumonia. On IV Zosyn. Denies respiratory symptoms. Wean O2. Seen by speech and diet recommended was ordered. <Nany Lance PA-C - Last Filed: 06/13/24 07:41> Time Spent With Patient Time: Total time managing care of this patient today ____ minutes. <Nany Lance PA-C - Last Filed: 06/13/24 07:41> Quality Stroke Does the patient have a stroke diagnosis?: No <Nany Lance PA-C - Last Filed: 06/13/24 07:41> VTE Prior VTE?: No <Nany Lance PA-C - Last Filed: 06/13/24 07:41> VTE Risk Level:: Surgical - moderate <Nany Lance PA-C - Last Filed: 06/13/24 07:41> VTE Device Contraindication: N/A - Device Ordered <Nany Lance PA-C - Last Filed: 06/13/24 07:41> VTE Drug Contraindication: N/A - Med Ordered <Nany Lance PA-C - Last Filed: 06/13/24 07:41>
--- NOTE | 2024-06-13 11:39 | MHC.SPEECHCO ---
LEATHER PATCHER attempted to offer PO trials to re-assess potential for upgrade, however Pt declined stating that he just ate lunch, given the time of day (11:00) he was informed it was likely breakfast. He is amenable for LEATHER PATCHER to return with Lunch tray later this afternoon.
[2024-06-13 11:42] VITALS: BP 109/56; PULSE 55; RESP 18; TEMP 36.6; O2SAT 93
[2024-06-13] MEDS: 0.9 % Sodium Chloride Flush 3 ML SYRINGE IVFLUSH ×2 (15:18→22:28)
[2024-06-13 15:23] VITALS: BP 122/60; PULSE 52; RESP 16; TEMP 36.4; O2SAT 94
[2024-06-13] MEDS: Enoxaparin Sodium 40 MG/0.4 ML SYRINGE SUBCUT (17:20)
[2024-06-13 19:31] VITALS: BP 112/55; PULSE 62; RESP 17; TEMP 36.7; O2SAT 94
[2024-06-14] VITALS: BP 124/57; PULSE 57; RESP 18; TEMP 36.7; O2SAT 92
[2024-06-14 03:52] VITALS: BP 122/70; PULSE 68; RESP 17; TEMP 36.1; O2SAT 93
[2024-06-14] MEDS: Piperacillin Sodium/Tazobactam 3.375 GM in 0.9 % Sodium Chloride 50 ML IV ×4 (05:27→23:19)
[2024-06-14 07:30] VITALS: BP 105/56; PULSE 69; RESP 20; TEMP 36.6; O2SAT 94
--- NOTE | 2024-06-14 07:59 | P.PNGS_ITS ---
Subjective Subjective Date of Service: 06/14/24 <Nany Lance PA-C - Last Filed: 06/14/24 08:04> 06/14/24 <Jeremy Dickson MD - Last Filed: 06/14/24 08:24> Interval history: Continues to have loose stools and had 3 this morning. OOB and ambulating. Tolerating solid diet but states the salmon did not sit well with him last night. <Nany Lance PA-C - Last Filed: 06/14/24 08:04> Physical Exam 2 Vital Signs: Vital Signs: Last Vital Signs Temp 97.9 F 06/14/24 07:30 Pulse 69 06/14/24 07:30 Resp 20 06/14/24 07:30 BP 105/56 L 06/14/24 07:30 Pulse Ox 94 06/14/24 07:30 O2 Del Method Room Air 06/14/24 07:30 O2 Flow Rate 3 06/13/24 07:33 BMI result Body Mass Index 18.1 <Nany Lance PA-C - Last Filed: 06/14/24 08:04> Const: General: comfortable, no acute distress and alert <Nany Lance PA-C - Last Filed: 06/14/24 08:04> Orientation/consciousness: patient oriented x3 <Nany Lance PA-C - Last Filed: 06/14/24 08:04> Resp: Effort & Inspection: normal respiratory effort, no cough and no respiratory distress <Nany Lance PA-C - Last Filed: 06/14/24 08:04> GI: Inspection: Yes distended (mild) and Yes incision (clean) <Nany Lance PA-C - Last Filed: 06/14/24 08:04> Palpation (GI): Soft to palpation, Tenderness to palpation present (GI) (mild incisional) and no guarding <GILA Lora Last Filed: 06/14/24 08:04> Skin: General skin exam: no rashes or lesions noted <GILA Lora Last Filed: 06/14/24 08:04> Neuro: General: patient oriented x3 <Nany Lance PA-C - Last Filed: 06/14/24 08:04> Objective Data Active Medications Acetaminophen (Acetaminophen 325 Mg Tablet) 650 mg PO Q6H PRN PRN Reason: Pain, Mild (Pain Scale 1-3), fever or headache Enoxaparin Sodium (Enoxaparin Sodium 40 Mg/0.4 Ml Syringe) 40 mg SUBCUT Q24H COUNTS INCLUDE 234 BEDS AT THE [facility] Last Admin: 06/13/24 17:20 Dose: 40 mg Documented By: MARISELA Piperacillin Sod/Tazobactam (Sod 3.375 gm/ Sodium Chloride) 50 mls @ 100 mls/hr IV Q6H COUNTS INCLUDE 234 BEDS AT THE [facility] Last Infusion: 06/14/24 05:59 Dose: Infused Documented By: DU Magnesium Hydroxide (Milk Of Magnesia 30 Ml Oral.Susp) 30 ml PO DAILY PRN PRN Reason: Constipation Melatonin (Melatonin 3 Mg Tablet) 6 mg PO BEDTIME PRN PRN Reason: Insomnia Morphine Sulfate (Morphine Sulfate 4 Mg/Ml Cartridge) 2 mg IVPUSH Q4H PRN; Protocol PRN Reason: Pain, Severe (Pain Scale 7-10) Ondansetron HCl (Ondansetron Hcl 4 Mg/2 Ml Vial) 4 mg IVPUSH Q8H PRN PRN Reason: Nausea Last Admin: 06/11/24 06:18 Dose: 4 mg Documented By: ROCIO Sodium Chloride (0.9 % Sodium Chloride Flush 3 Ml Syringe) 3 ml IVFLUSH QSHIFT COUNTS INCLUDE 234 BEDS AT THE [facility] Last Admin: 06/13/24 22:28 Dose: 3 ml Documented By: DU <Nany Lance PA-C - Last Filed: 06/14/24 08:04> Labs CBC & Chem 7: 06/10/24 05:48 06/13/24 05:07 <Nany Lance PA-C - Last Filed: 06/14/24 08:04> Procedures Date of Service Date of Service: 06/14/24 <Nany Lance PA-C - Last Filed: 06/14/24 08:04> 06/14/24 <Jeremy Dickson MD - Last Filed: 06/14/24 08:24> Progress Note: A&P Assessment and plan (1) Incarcerated inguinal hernia: Status: Acute <GILA Lora Last Filed: 06/14/24 08:04> (2) SBO (small bowel obstruction): Status: Acute <GILA Lora Last Filed: 06/14/24 08:04> Assessment and Plan: Admitted for Right femoral hernia incarcerated, small-bowel obstruction now POD #3 s/p Repair of incarcerated femoral hernia. Continues to do well post op but having now with numerous loose stools. Will order imodium. Cont OOB/ambulation. Diet as tolerated. Home when bowel movements more manageable. ?Aspiration pneumonia. On IV Zosyn. Continues to deny respiratory symptoms. Off O2. Seen by speech and diet recommended was ordered. <GILA Lora Last Filed: 06/14/24 08:04> Time Spent With Patient Time: Total time managing care of this patient today ____ minutes. <GILA Lora Last Filed: 06/14/24 08:04> Quality Stroke Does the patient have a stroke diagnosis?: No <GILA Lora Last Filed: 06/14/24 08:04> VTE Prior VTE?: No <GILA Lora Last Filed: 06/14/24 08:04> VTE Risk Level:: Surgical - moderate <GILA Lora Last Filed: 06/14/24 08:04> VTE Device Contraindication: N/A - Device Ordered <GILA Lora Last Filed: 06/14/24 08:04> VTE Drug Contraindication: N/A - Med Ordered <GILA Lora Last Filed: 06/14/24 08:04>
[2024-06-14] MEDS: Loperamide HCl 2 MG CAPSULE PO (08:21)
[2024-06-14] MEDS: 0.9 % Sodium Chloride Flush 3 ML SYRINGE IVFLUSH ×3 (08:22→23:18)
--- NOTE | 2024-06-14 10:23 | P.CDIM_ITS ---
PROVIDER RESPONSE TEXT: To clarify, the appropriate diagnosis supported by the clinical indicators: Underweight QUERY TEXT: PHYSICIAN'S DOCUMENTATION REQUEST Date of Query: 06/13/2024 10:52 AM EDT Patient Name: Melvin Diallo Admit Date: 06/09/2024 Dear Jeremy Dickson MD, A review of the medical record indicates additional documentation may be needed. Please review below and update the documentation accordingly. Clinical Indicators: Height: ( ) 5'8 Weight: ( ) 54 kg BMI: ( ) 18.1 Other Clinical Notes Supporting Significance of the BMI: Per Clinical Nutrition Assessment 06/12/24: underweight Nutrition diagnosis non severe malnutrition in the context of acute illness mild depletion of body fat and muscle mass noted when po resumes, consider Ensure BID to increase nutritional intake If possible, please provide an associated diagnosis related to the abnormal BMI, such as: Underweight Weight loss Cachexia Anorexia Mild protein calorie Malnutrition Other (explain) Clinically unable to determine (explain) Thank you, Venita Mckeon RN Use of terms such as suspected, likely, concern for, or probable (associated with a specific diagnosi s that is being evaluated, monitored, or treated as if it exists) are acceptable and can be coded in the inpatient se tting, when documented at the time of discharge. Please use your independent medical judgment in providing your response. THIS QUERY IS PART OF THE PERMANENT MEDICAL RECORD
--- NOTE | 2024-06-14 10:37 | MHC.SL.DTX ---
Late entry for 06/14/24: Dysphagia Diet modifications: Last documented Solid diet consistencies: Regular Last documented Liquid consistency: Honey Thick Last documented Medication Administration: Changes made to current diet?: Yes Liquid Consistency and Strategies: Liquid Intake Recommendation: Honey Thick Compensatory Strategies for Safe Swallow: Small Sips No Straws Compensatory Strategies for Safe Swallow(b): Sitting Upright (90 deg) Liquids from Cup Small Bites and Sips Alternate Liquids/Solids Rate of Ingestion Change Solid Food Consistency: Dietary Recommendations: Regular Oral Medication Intake: Whole with Puree Strategies and Precautions to be Taken for Safe Swallow: Sitting Upright (90 deg) Liquids from Cup Small Bites and Sips Alternate Liquids/Solids Rate of Ingestion Change Supervision While Eating and/Drinking: Intermittent Supervision Foods to Avoid: Hard, tough to chew solids; mixed consistencies Swallowing Recommended Treatments: Compens. Strategy Educat. Level of Impact on: Daily activities: Mild Interpersonal interactions: Education: None Employment: None Community: Mild Prognosis for Improvement: Good Recommendation for Speech: Inpatient Speech Therapy Comment: BARREL STRAIGHTENER will continue to follow to monitor tolerance and to re-assess for potential upgrade. Frequency/Duration: M-F PRN Additional Comments: Treatment: Per RN, Pt has been lethargic all day. BARREL STRAIGHTENER attempted in the morning, he was found in a dark room with the TV off sleeping on his side. He awakes to voice, however Pt declined stating that he already ate his lunch. Given the time of day, 10:30, he was informed it was probably his breakfast. BARREL STRAIGHTENER returned later in the day. Pt was in the same state with the lights off and eye close. He awakens easily to voice, declines solid trials, but agrees to liquid trials. Pt is positioned upright in bed. He is provided progressive trials of Thin Liquids via ice chip, spoon, and self-administered cup sip. He passed for all trials with no overt s/s of aspiration, no change to voice quality. Recommend UPGRADE to THIN LIQUIDS and keep REGULAR SOLIDS. MEDS WHOLE with PUREE or LIQUIDS, as preferred. Pt will benefit from TRAY SET-UP and encouragement to eat at meals time. BARREL STRAIGHTENER will follow-up x1 to ensure toleration of return to baseline diet. Flower Grower Clinican/Clinical Fellow: No Supervisory Statement: I have reviewed and agree with the student/clinical fellow's documentation: N/A Speech Language Pathologist: Anton Diego M.A., [facility]-BARREL STRAIGHTENER
--- NOTE | 2024-06-14 10:49 | MHC.CLN ---
F/U PATIENT SEEN BY EXAMINER RATING CLERK WITH DIET REC REGULAR WITH THIN LIQUIDS. ADDING ENSURE BID TO INCREASE NUTRITIONAL INTAKE. SUPPLEMENT PROVIDES 700 KCALS, 40 G PROTEIN. FOLLOW FOR INTAKE AND DIET TOLERANCE.
--- NOTE | 2024-06-14 10:51 | MHC.CM.PN ---
Patient not medically cleared for dc. CM will continue to follow.
[2024-06-14 11:27] VITALS: BP 113/63; PULSE 67; RESP 20; TEMP 36.6; O2SAT 95
--- NOTE | 2024-06-14 11:52 | MHC.SL.SWA ---
Speech Pathologist Impression: WFL Dysphasia Diet Status: Continue on REGULAR/THIN Liquid Consistency and Strategies for Safe Swallow: Liquid Intake Recommendation: Thin Liquid Intake Strategies: Small Sips Solid Food Consistency: Dietary Recommendations: Regular Additional Modifications to Solid Foods: Patient is back to baseline, tolerating unmodified textures. Please re-refer with any changes or if CLOCK MAKER can be of further assistance. Oral Medication Intake: Whole with Puree Please contact the pharmacy regarding appropriate crushable or liquid drug formulations that are available whenever modified delivery is recommended. Compensatory Strategies and Precautions to be Taken for Safe Swallow: Sitting Upright (90 deg) Small Bites and Sips Alternate Liquids/Solids Rate of Ingestion Change Supervision While Eating and Drinking for Safe Swallow: Intermittent Supervision Foods to Avoid: Hard, tough to chew solids; mixed consistencies Swallowing Recommended Treatments: Compens. Strategy Educat. Recommendation for Speech: D/C Chemical Treatment Operator Clinican/Clinical Fellow: No Supervisory Statement: I have reviewed and agree with the student/clinical fellow's documentation: N/A Speech Language Pathologist: Charu Carbone M.A., CCC-CLOCK MAKER
[2024-06-14 15:40] VITALS: BP 118/67; PULSE 72; RESP 18; TEMP 36.5; O2SAT 94
[2024-06-14] MEDS: Enoxaparin Sodium 40 MG/0.4 ML SYRINGE SUBCUT (17:13)
[2024-06-14 19:56] VITALS: BP 118/58; PULSE 75; RESP 18; TEMP 36.8; O2SAT 93
[2024-06-15] VITALS: BP 146/62; PULSE 67; RESP 18; TEMP 36.3; O2SAT 96
[2024-06-15 03:33] VITALS: BP 137/66; PULSE 76; RESP 18; TEMP 36.5; O2SAT 95
[2024-06-15] MEDS: Piperacillin Sodium/Tazobactam 3.375 GM in 0.9 % Sodium Chloride 50 ML IV (04:44)
--- NOTE | 2024-06-15 07:49 | PM.PNGS ---
Subjective Subjective Date of Service: 06/15/24 Interval history: Feels improved. Tolerating solids without nausea or vomiting. Diarrhea improved. OOB and ambulating. Physical Exam Vital Signs: Vital Signs: Last Vital Signs Temp 97.7 F 06/15/24 03:33 Pulse 76 06/15/24 03:33 Resp 18 06/15/24 03:33 BP 137/66 06/15/24 03:33 Pulse Ox 95 06/15/24 03:33 O2 Del Method Room Air 06/15/24 03:33 O2 Flow Rate 2 06/15/24 00:00 BMI result Body Mass Index 18.1 Const: General: comfortable, no acute distress and well developed Resp: Effort & Inspection: normal respiratory effort GI: Inspection: No distended and Yes incision (clean, steris intact ) Palpation (GI): Soft to palpation, nontender and no guarding Skin: General skin exam: no rashes or lesions noted Objective Data Active Medications Acetaminophen (Acetaminophen 325 Mg Tablet) 650 mg PO Q6H PRN PRN Reason: Pain, Mild (Pain Scale 1-3), fever or headache Enoxaparin Sodium (Enoxaparin Sodium 40 Mg/0.4 Ml Syringe) 40 mg SUBCUT Q24H NICHOLAS Last Admin: 06/14/24 17:13 Dose: 40 mg Documented By: MARISELA Piperacillin Sod/Tazobactam (Sod 3.375 gm/ Sodium Chloride) 50 mls @ 100 mls/hr IV Q6H [facility] Last Infusion: 06/15/24 05:14 Dose: Infused Documented By: ALICE Loperamide HCl (Loperamide Hcl 2 Mg Capsule) 2 mg PO Q6H PRN PRN Reason: diarrhea Last Admin: 06/14/24 08:21 Dose: 2 mg Documented By: MARISELA Magnesium Hydroxide (Milk Of Magnesia 30 Ml Oral.Susp) 30 ml PO DAILY PRN PRN Reason: Constipation Melatonin (Melatonin 3 Mg Tablet) 6 mg PO BEDTIME PRN PRN Reason: Insomnia Morphine Sulfate (Morphine Sulfate 4 Mg/Ml Cartridge) 2 mg IVPUSH Q4H PRN; Protocol PRN Reason: Pain, Severe (Pain Scale 7-10) Ondansetron HCl (Ondansetron Hcl 4 Mg/2 Ml Vial) 4 mg IVPUSH Q8H PRN PRN Reason: Nausea Last Admin: 06/11/24 06:18 Dose: 4 mg Documented By: ROCIO Sodium Chloride (0.9 % Sodium Chloride Flush 3 Ml Syringe) 3 ml IVFLUSH QSHIFT NICHOLAS Last Admin: 06/14/24 23:18 Dose: 3 ml Documented By: PEGGYASY Labs 06/10/24 05:48 06/13/24 05:07 Procedures Date of Service Date of Service: 06/15/24 Progress Note: A&P Assessment and plan (1) Incarcerated inguinal hernia: Status: Acute (2) SBO (small bowel obstruction): Status: Acute Plan Tolerating diet with good GI function, diarrhea improved. Abd exam benign with clean incisions. Feels ready for discharge to home. F/u in office in 1 week, no heavy lifting. Time Spent With Patient Time: Total time managing care of this patient today ____ minutes. Quality Stroke Does the patient have a stroke diagnosis?: No VTE Prior VTE?: No VTE Risk Level:: Surgical - moderate VTE Device Contraindication: N/A - Device Ordered VTE Drug Contraindication: N/A - Med Ordered
[2024-06-15 07:52] VITALS: BP 137/73; PULSE 70; RESP 18; TEMP 36.4; O2SAT 94
--- NOTE | 2024-06-15 08:29 | MHC.CM.PN ---
Patient medically cleared for dc home self care via [facility] [place] @ 355am. RN aware. IMM delivered.
--- NOTE | 2024-06-15 12:13 | PM.DS ---
DS: Providers Provider Date of Service: 06/15/24 Date of admission: 06/09/24 18:28 Date of discharge: 06/15/24 Primary care physician: Melvin Cormier NP Attending physician on admission: Jeremy Dickson Consults: 06/09/24 18:40 Consult to Hospitalist Routine Comment: Consulting Provider: Hospitalist Reason For Exam: SBO, RIH incarcerated, med management Attending physician on discharge: Jeremy Dickson DS: Diagnosis Discharge Diagnosis (1) Incarcerated inguinal hernia: Status: Acute (2) SBO (small bowel obstruction): Status: Acute DS: Summary Hospital Course Hospital Course: HPI AT ADMISSION: Melvin Diallo is a 74 year old male presenting with complaints of nausea, vomiting, weakness, and poor oral intake for approximately 1 week. He reports living alone with his cat and has not seen a physician in many years. He presented to the emergency department for further evaluation and was noted to have abdominal distention. CT abdomen and pelvis revealed dilated loops of small bowel with a right inguinal hernia as the site of obstruction. Attempts to reduce the hernia the emergency department were unsuccessful. He denies any pain in the right groin. Admitting laboratories reveal a normal WBC. HOSPITAL COURSE: He was admitted to the surgical service for further hydration and management of this incarcerated right inguinal hernia. Attempts at placing an NG tube were unsuccessful with multiple attempts. He was kept NPO with IV fluids. Hospitalist consultation requested as patient had not seen a physician for many years. Possible OR within the next several days if medically cleared. Patient understands and agrees with the plan. He was seen by the hospitalists and placed on CIWA precautions given his daily alcohol consumption. On 06/11/24, repair of incarcerated femoral hernia was performed by Dr. Dickson without immediate complication. NGT was placed intraoperatively. The bowel was found to be viable however surrounding fatty tissue was necrotic and no bowel resection was required. He tolerated the procedure well. He was hypoxic in PACU with O2 sat low 90s on 4-5L. Stat CXR showing right airspace opacity favoring aspiration pneumonia and he was subsequently started on IV Zosyn. His oxygenation improved and he was in no distress. The remainder of his post operative course was uneventful. ON POD#1 he began to have multiple loose BMs. His hurtado was removed. His NGT had clear moderate output and was clamped. He had no symptoms and it was removed later in the day. His activity was increased. Speech therapy consultation was obtained and appropriate diet was ordered. He returned to his baseline and was able to tolerate regular diet by discharge per speech. He developed loose stools and imodium was initiated. He was weaned off supplemental oxygen. On the day of discharge, he was tolerating a solid diet without nausea or vomiting. He had good GI function and improvement in his loose stools. His pain was well controlled. He was ambulating without difficulty. He was hemodynamically stable. His abdomen was benign with clean incision. He was discharged to home on 06/15/24. He completed a course of IV zosyn. He is to follow up in the office in 1 week. Status at Discharge Functional status at discharge: independent ambulation Overall status at discharge: patient is progressing back to baseline Time Attestation Discharge Coordination Time (in mins): 40 Quality: Safe Use of Opioids Does Pt have an Active Cancer Diagnosis on the Problem List?: No Quality: Stroke Does the patient have a stroke diagnosis?: No Physical Exam Vital Signs: Vital Signs: Last Vital Signs Temp 97.5 F 06/15/24 07:52 Pulse 70 06/15/24 07:52 Resp 18 06/15/24 07:52 BP 137/73 06/15/24 07:52 Pulse Ox 94 06/15/24 07:52 O2 Del Method Room Air 06/15/24 07:52 O2 Flow Rate 2 06/15/24 00:00 BMI result Body Mass Index 18.1 Const: General: comfortable, no acute distress and alert Orientation/consciousness: patient oriented x3 Resp: Effort & Inspection: normal respiratory effort GI: Inspection: No distended and Yes incision (clean, steris intact) Palpation (GI): Soft to palpation and Tenderness to palpation present (GI) (mild incisional) Percussion: Yes normal to percussion Skin: General skin exam: no rashes or lesions noted Neuro: General: patient oriented x3 DS: Data Data Completed and Pending Completed studies during hospitalization [Text1]: 06/11/24 09:15 Surgical [PTH] Routine Right femoral hernia, herniorrhaphy: Fibrovascular and adipose tissue with vascular congestion consistent with hernia sac. Discharge Plan Discharge Anticipated Discharge Date/Time: 06/14/24 14:01 Patient Disposition: Home, Self-Care Discharge Diagnosis: SBO, incarcerated femoral hernia Referrals: Jeremy Dickson MD [Physician] - 1 Week Melvin Cormier NP [Primary Care Provider] - 1 Week Discharge Medications: New oxycodone 5 mg tablet 5 mg PO Q4H PRN (Reason: pain (scale score 7-10)) Qty: 20 0RF Rx Instructions: Partial Fill upon patient request. loperamide [Imodium A-D] 2 mg capsule 2 mg PO Q4H PRN (Reason: loose stool) Qty: 30 0RF Rx Instructions: administer after each loose stool until symptoms controlled; do not exceed 8 mg per 24 hrs Continued carisoprodol [Soma] 350 mg Tablet 350 mg PO QID atorvastatin 80 mg Tablet 40 mg PO DAILY lisinopril 20 mg Tablet 20 mg PO DAILY Discharge Orders: Discharge Order (Routine); Ordered 06/15/24 Ordered By: Nany Lance Activity on Discharge: No heavy lifting Stand Alone Forms: Patient Portal Discharge page Print Language: Taiwanese Activity Restrictions/Additional Instructions: If the incision area is tender, you may apply an ice pack for short intervals (No more than 20 minutes on, followed by at least 20 minutes off). Do not apply heat. Do not use creams, lotions, or topical antibiotics. These can cause infection or allergic reaction. Ok to shower. You have jarrod closing your incision and these will be removed approximately 10-14 days after surgery. NO HEAVY LIFTING (>10lbs) or strenuous activity. Follow up in office. ([phone]) Call Your Doctor If: -Your temperature exceeds 101.5? F -You experience excessive pain or swelling -You have an unexpected reaction to medication -You have excessive bleeding -You experience continued vomiting/nausea -Your incision begins to separate -Your incision shows signs of infection such as increased redness, swelling, excessive pain, drainage (light blood or clear fluid is normal) or heat Care Plan Goals: Return to baseline health and resume normal activities following recovery period. Health Concerns: incarcerated femoral hernia, SBO aspiration PNA Plan of Treatment: s/p repair of femoral hernia f/u in office in 1 week Assessment: Doing well post op. Discharge Date/Time: 06/15/24 09:09
--- NOTE | 2024-06-23 09:45 | P.CDIM_ITS ---
PROVIDER RESPONSE TEXT: To clarify, the appropriate diagnosis supported by the clinical indicators: due to gastric secretions QUERY TEXT: PHYSICIAN'S DOCUMENTATION REQUEST Date of Query: 06/23/2024 06:52 AM EDT Patient Name: Melvin Diallo Admit Date: 06/09/2024 Dear Jeremy Dickson MD, A review of the medical record indicates additional documentation may be needed. Please review below and update the documentation accordingly. Clinical Indicators: Per the Discharge Summary 06/15/24: On 06/11/24, repair of incarcerated femoral hernia was performed He was hypoxic in PACU with O2 sat lo w 90s on 4-5L. Stat CXR showing right airspace opacity favoring aspiration pneumonia and he was subsequently started on IV Zo syn. His oxygenation improved and he was in no distress. Based on the above, could you clarify the cause of the aspiration pneumonia: chemical pneumonitis due to anesthesia due to anesthesia due to gastric secretions due to food, vomit, liquids Other (explain) Clinically unable to determine (explain) Thank you, Venita Mckeon RN Use of terms such as suspected, likely, concern for, or probable (associated with a specific diagnosi s that is being evaluated, monitored, or treated as if it exists) are acceptable and can be coded in the inpatient se tting, when documented at the time of discharge. Please use your independent medical judgment in providing your response. THIS QUERY IS PART OF THE PERMANENT MEDICAL RECORD
== END 2024-06-15 09:09 | disposition home or self-care (01) | DRG 350 ==
LOC: HO.ED 18:22 → HO.EDOVER 18:43 → HO.S3 19:40
PROVIDERS: Physician Assistant Surgical; Admitting Provider Surgery; Emergency Provider Emergency Medicine; PCP Nurse Practitioner Family; Visit Provider Surgery
PROC: 0YQ70ZZ Repair Right Femoral Region, Open Approach (ICD-10-PCS; principal; 2024-06-11 08:00)
DX: K41.30 Unilateral femoral hernia, with obstruction, without gangrene, not specified as recurrent (principal); J69.0 Pneumonitis due to inhalation of food and vomit; N17.9 Acute kidney failure, unspecified; Z68.1 Body mass index [BMI] 19.9 or less, adult; R63.6 Underweight; F17.210 Nicotine dependence, cigarettes, uncomplicated; E86.1 Hypovolemia; Z71.6 Tobacco abuse counseling; Z79.899 Other long term (current) drug therapy
CPT/HCPCS: 0241U; 36415; 71045; 74176; 80048; 80053; 80307; 81001; 82550; 83690; 83735; 84484; 85007; 85025; 85027; 88302; 92526; 92610; 93005; 99285; C1758; C9088; J0690; J1100; J1650; J2250; J2405; J2543; J2704; J3010; J3480

== ENCOUNTER → 2024-06-09 16:59 | Outpatient (BNV) | payer MEDICARE, SELFPAY | PROVIDERS: Admitting Provider Surgery; Emergency Provider Emergency Medicine; PCP Nurse Practitioner Family; Visit Provider Internal Medicine Cardiovascular Disease | DX: R53.1 Weakness (principal) | CPT/HCPCS: 93010 ==

== ENCOUNTER → 2024-06-09 18:28 | Outpatient (BNV) | payer MEDICARE, SELFPAY | PROVIDERS: Admitting Provider Surgery; Emergency Provider Emergency Medicine; PCP Nurse Practitioner Family; Visit Provider Surgery | DX: K40.30 Unilateral inguinal hernia, with obstruction, without gangrene, not specified as recurrent (principal); K56.609 Unspecified intestinal obstruction, unspecified as to partial versus complete obstruction | CPT/HCPCS: 49553; 99024; 99222; 99232 ==

== ENCOUNTER → 2024-06-09 18:28 | Outpatient (BNV) | payer MEDICARE, SELFPAY | PROVIDERS: Admitting Provider Surgery; Emergency Provider Emergency Medicine; PCP Nurse Practitioner Family; Visit Provider Nurse Practitioner Acute Care | DX: K40.30 Unilateral inguinal hernia, with obstruction, without gangrene, not specified as recurrent (principal) | CPT/HCPCS: 99222; 99499 ==